=== PATIENT | male | born 1940 | race Caucasian/White ===

== ENCOUNTER 2019-07-17 20:22 | Emergency (ER) | payer MEDICARE, SELFPAY ==
--- NOTE | ~2019-07-17 | XR_ITS ---
XR chest 2V 07/17/2019 21:24 Indication: Chest pain Procedure: 2 view chest Comparison: 12/02/2018 Findings: Heart size normal. Pacemaker lead tip in the right ventricle. No focal air space disease, p ulmonary edema, pleural effusion or suspected pneumothorax. Impression: 1: No acute cardiopulmonary disease. Reviewed, dictated and finalized at location A. Impression: 1: No acute cardiopulmonary disease.
[2019-07-17 20:27] VITALS: BP 109/70; PULSE 75; PULSE 83; RESP 18; TEMP 36; O2SAT 100
--- NOTE | 2019-07-17 20:53 | ECG_ITS ---
Measurements Intervals [place] Rate: 72 P: [place]: 0 QRS: 250 QRSD: 174 T: 65 QT: 444 QTc: 487 Interpretive Statements ELECTRONIC VENTRICULAR PACEMAKER WITH INHIBITION UNDERLYING PROBABLY ATRIAL FIBRILLATION INTRAVENTRICULAR CONDUCTION DELAY BORDERLINE ST-T WAVE ABNORMALITY- LATERAL LEADS BASELINE ARTIFACT- I, II, III, AVR, AVL, AVF, V2 NO FURTHER INTERPRETATION IS POSSIBLE ABNORMAL ECG Electronically Signed On 07-18-2019 7:56:28 CDT by Lawrence Renee D.O.
[2019-07-17 21:11] LABS: Basophils Absolute Auto 0.1 K/mm3 (0.0-0.1); Basophils Percent Auto 0.7 % (0.2-1.2); Eosinophils Absolute Auto 0.2 K/mm3 (0-0.3); Eosinophils Percent Auto 2.1 % (0-4.4); Hematocrit 33.2 % (42.0-52.0); Hemoglobin 11.4 g/dL (14.0-18.0); Immature Granulocyte Absolute 0.15 K/mm3 (0.00-0.031); Immature Granulocyte Percent A 1.4 % (0-0.5); Lymphocytes Absolute Auto 1.51 K/mm3 (0.9-3.2); Lymphocytes Percent Auto 14.1 % (18.3-44.2); Mean Corpuscular HGB Conc 34.3 g/dl (32-36); Mean Corpuscular Volume 90.2 fl (80-100); Mean Platelet Volume 9.6 fl (7.4-10.4); Monocytes Percent Auto 9.2 % (2.6-8.5); Neutrophils Absolute Auto 7.8 K/mm3 (1.3-6.7); Neutrophils Percent Auto 72.5 % (45.5-73.1); Platelet Count Result 197 k/mm3 (150-375); Red Blood Count 3.68 M/mm3 (4.6-6.20); Red Cell Distribution Width 13.5 % (11.5-14.5); White Blood Count 10.7 K/mm3 (4.5-10.0)
[2019-07-17 21:21] LABS: INR 1.2; Prothrombin Time 14.8 Seconds (11.1-14.7)
[2019-07-17 21:22] LABS: Partial Thromboplastin Time 48.1 SECONDS (22.3-36.8)
[2019-07-17 21:23] LABS: Blood Urea Nitrogen 12 mg/dL (9-20); Calcium 8.3 mg/dL (8.4-10.2); Carbon Dioxide 29 mmol/L (22-30); Chloride 89 mmol/L (98-107); Estimated Glomerular Filt Rate > 60; Glucose 159 mg/dL (75-110); Sodium 127 mmol/L (137-145)
[2019-07-17 21:35] LABS: Troponin I 0.022 ng/mL (0.000-0.034)
[2019-07-17 21:39] VITALS: BP 102/61; PULSE 83; RESP 18; O2SAT 100
[2019-07-17] MEDS: BELLADONNA ALK/PHENOB ELIX 10 ML, MAG HYDROX/ALUMINUM HYD/SIMETH 30 ML, LIDOCAINE HCL 2... PO (22:39)
[2019-07-17 22:40] VITALS: BP 102/59; PULSE 85; RESP 18; O2SAT 97
--- NOTE | 2019-07-17 23:08 | ED.GENADULT ---
HPI - General Adult General Chief complaint: Chest Pain Stated complaint: chest pain Time Seen by Provider: 07/17/19 22:07 History of Present Illness HPI narrative: Patient is a 79-year-old male who presents to the ER with epigastric abdominal pain radiating up into his chest. It is burning in nature. It occurred after he finished eating this evening. Associated with nausea/vomiting. No difficulty breathing/sweats/dizziness. Poor historian. Related Data Allergies Allergy/AdvReac Type Severity Reaction Status Date / Time cephalexin Allergy Unknown Verified 08/13/17 06:33 Cephalosporins Allergy Unknown Verified 08/13/17 06:33 Penicillins Allergy Unknown Verified 08/13/17 06:33 shellfish derived Allergy Unknown Verified 08/13/17 06:33 Shrimp Allergy Unknown Uncoded 12/06/18 23:25 Review of Systems Constitutional: Constitutional: Denies chills, Denies fever(s) and Denies weakness Cardiovascular: Cardiovascular: Reports chest pain, Denies rapid heart rate and Denies radiating jaw, neck or arm pain Respiratory: Respiratory: Denies cough, Denies dyspnea and Denies wheezing Gastrointestinal: Gastrointestinal: Reports heartburn, Reports nausea and Reports vomiting PMFSH Past Medical History Medical History (Updated 07/17/19 @ 23:33 by Karlos Chirinos MD) Atrial fibrillation Congestive heart failure COPD (chronic obstructive pulmonary disease) Diabetes type 2, controlled GERD (gastroesophageal reflux disease) Hyperlipidemia Hypertension Hypothyroidism Obstructive sleep apnea Restless leg syndrome Surgical History Surgical History (Updated 07/17/19 @ 23:25 by Karlos Chirinos MD) History of appendectomy Pacemaker Family History Family History (Updated 08/13/17 @ 06:38 by DOCTOR UNKNOWN) Father Family history of malignant neoplasm, Onset Age: 70 Mother Family history of malignant neoplasm, Onset Age: 70 Social History Social History Smoking status: Former smoker Smoking end date: 05/06/99 Gender identity (if verbalized by the patient): Male Exam Narrative: Exam Narrative: GENERAL: Chronically illl-appearing, well-nourished, and in no acute distress. HEAD: Normocephalic, atraumatic. ENT: Mucous membranes moist. NECK: Supple. CHEST: Clear to auscultation. No respiratory distress. HEART: Regular rate and rhythm. Normal peripheral pulses. ABDOMEN: Soft, nontender, nondistended. EXTREMITIES: Normal range of motion BUE. Chronic lower extremity edema with venous stasis changes. SKIN: Warm, dry, no rash. NEURO: Alert and oriented x3. Course Course Emergency Course: Patient with significant improvement of symptoms with GI cocktail. Patient states that the pain was similar to his reflux. Patient has some chronic hyponatremia. Plan on discharge back to facility. Troponins negative x2. Vital Signs Vital signs: Vital Signs Temperature 96.8 F L 07/17/19 20:27 Pulse Rate 83 07/17/19 20:27 Respiratory Rate 18 07/17/19 20:27 Blood Pressure 109/70 07/17/19 20:27 Pulse Oximetry 100 07/17/19 20:27 Temperature 96.8 F L 07/17/19 20:27 Pulse Rate 73 07/17/19 23:50 Respiratory Rate 20 07/17/19 23:50 Blood Pressure 106/59 L 07/17/19 23:50 Pulse Oximetry 100 07/17/19 23:50 Medical Decision Making Vital Signs Vital Signs: Vital Signs Temperature 96.8 F L 07/17/19 20:27 Pulse Rate 83 07/17/19 20:27 Respiratory Rate 18 07/17/19 20:27 Blood Pressure 109/70 07/17/19 20:27 Pulse Oximetry 100 07/17/19 20:27 Temperature 96.8 F L 07/17/19 20:27 Pulse Rate 73 07/17/19 23:50 Respiratory Rate 20 07/17/19 23:50 Blood Pressure 106/59 L 07/17/19 23:50 Pulse Oximetry 100 07/17/19 23:50 Lab Data Result diagrams: 07/17/19 21:05 07/17/19 21:05 Labs: Lab Results 07/17/19 07/17/19 07/17/19 Range/Units 21:05 21:05 21:05 WBC 10.7 H (4.5-10.0) K/mm3 RBC 3.68 L (4.
[2019-07-17 23:50] VITALS: BP 106/59; PULSE 73; RESP 20; O2SAT 100
[2019-07-18 00:21] LABS: Troponin I 0.023 ng/mL (0.000-0.034)
[2019-07-18 00:47] VITALS: BP 108/58; PULSE 74; RESP 18; O2SAT 100
[2019-07-18 01:04] VITALS: BP 108/58; PULSE 82; RESP 18; O2SAT 100
--- NOTE | 2019-07-18 01:55 | PC.NURSE ---
[facility] here to take pt back to [facility] @ [facility]
[2019-07-18 02:03] VITALS: BP 108/59; PULSE 78; RESP 18; O2SAT 98
== END 2019-07-18 02:08 | disposition home or self-care (01) ==
PROVIDERS: Emergency Provider Emergency Medicine; PCP Family Medicine
DX: K21.9 Gastro-esophageal reflux disease without esophagitis (principal); I48.91 Unspecified atrial fibrillation; I50.9 Heart failure, unspecified; J44.9 Chronic obstructive pulmonary disease, unspecified; E11.9 Type 2 diabetes mellitus without complications; E78.5 Hyperlipidemia, unspecified; I11.0 Hypertensive heart disease with heart failure; E03.9 Hypothyroidism, unspecified; G47.33 Obstructive sleep apnea (adult) (pediatric); G25.81 Restless legs syndrome; Z95.0 Presence of cardiac pacemaker; Z87.891 Personal history of nicotine dependence; R94.31 Abnormal electrocardiogram [ECG] [EKG]
CPT/HCPCS: 36415; 71046; 80048; 84484; 85025; 85610; 85730; 93005; 99284; A9270

== ENCOUNTER 2019-11-03 04:54 | Emergency (ER) | payer MEDICARE, SELFPAY ==
[2019-11-03 04:52] VITALS: BP 133/63; PULSE 63; RESP 16; TEMP 36.7; O2SAT 94
--- NOTE | 2019-11-03 04:58 | ED.MALEGU ---
HPI - Male Genitourinary General Chief complaint: Urogenital-Male Stated complaint: catheter pain Time Seen by Provider: 11/03/19 04:57 History of Present Illness HPI Narrative: Patient presents via EMS from the long term for bloody painful urinary catheter. His catheter was replaced at midnight, and he had pain since. The tubing in bag have blood-tinged urine. He said he has had chills since the catheter was placed. He denies illness. Says he has pain in his hands from his arthritis. When asked if he was coughing he said no he does not want any coffee. His hearing aids are hanging out of his ears. Related Data Home Medications Medication Instructions Recorded Confirmed atorvastatin 10 mg PO HS 11/03/19 budesonide [Pulmicort Flexhaler] 1 inh INHALATION Q12H 11/03/19 calcium carbonate-vitamin D3 1 tablet PO BID 11/03/19 [Oystercal-D] dabigatran etexilate [Pradaxa] 150 mg PO BID 11/03/19 dextran 70-hypromellose 2 drp OPHTHALMIC (EYE) HS 11/03/19 diltiazem HCl 30 mg PO TID 11/03/19 docusate sodium 50 mg PO BID 11/03/19 ezetimibe 10 mg PO DAILY 11/03/19 finasteride 5 mg PO DAILY 11/03/19 fludrocortisone 11/03/19 furosemide [Lasix] 40 mg PO DAILY 11/03/19 gabapentin 100 mg PO DAILY 11/03/19 insulin lispro protamin-lispro 5 unit SUBCUT QAM 11/03/19 ipratropium-albuterol [Combivent 1 puff INHALATION Q4H 11/03/19 Respimat] levothyroxine 125 mcg PO DAILY 11/03/19 magnesium hydroxide [Milk of 400 mg PO DAILY PRN 11/03/19 Magnesia] pantoprazole 40 mg PO HS 11/03/19 polyethylene glycol 3350 [Miralax] 17 g PO DAILY PRN 11/03/19 sitagliptin 100 mg PO DAILY 11/03/19 spironolactone 25 mg PO BID 11/03/19 tramadol 50 mg PO Q6H PRN 11/03/19 triamcinolone acetonide 1 applic TOPICAL DAILY 11/03/19 Allergies Allergy/AdvReac Type Severity Reaction Status Date / Time cephalexin Allergy Unknown Unknown Verified 11/03/19 05:03 Cephalosporins Allergy Unknown Unknown Verified 11/03/19 05:03 Penicillins Allergy Unknown Unknown Verified 11/03/19 05:03 shellfish derived Allergy Unknown Unknown Verified 11/03/19 05:03 Shrimp Allergy Unknown Unknown Uncoded 11/03/19 05:03 Review of Systems Review of Systems: Narrative: Review of systems is limited by hard of hearing. All systems reviewed & are unremarkable except as noted in HPI and below (HPI) PMFSH Past Medical History Medical History Atrial fibrillation Congestive heart failure COPD (chronic obstructive pulmonary disease) Diabetes type 2, controlled GERD (gastroesophageal reflux disease) Hyperlipidemia Hypertension Hypothyroidism Obstructive sleep apnea Restless leg syndrome Surgical History Surgical History History of appendectomy Pacemaker Family History Family History (Updated 08/13/17 @ 06:38 by DOCTOR UNKNOWN) Father Family history of malignant neoplasm, Onset Age: 70 Mother Family history of malignant neoplasm, Onset Age: 70 Social History Social History Smoking status: Former smoker Smoking end date: 05/06/99 Gender identity (if verbalized by the patient): Male Exam Narrative: Exam Narrative: GENERAL: Well-appearing, well-nourished, and in no acute distress. Underbite. Loud voice. Hearing aids. HEAD: Normocephalic, atraumatic. EYES: PERRLA and EOMI. ENT: Nares clear, no rhinorrhea or epistaxis. Mucous membranes moist. NECK: Supple. CHEST: Clear to auscultation. No respiratory distress. HEART: Regular rate and rhythm. No murmur heard. Normal peripheral pulses. ABDOMEN: Soft, nontender, nondistended, normal active bowel sounds. EXTREMITIES: Normal range of motion. No edema. SKIN: Warm, dry, no rash. NEURO: No focal deficits. Alert and oriented x3. PSYCH: Normal mood and affect. : hypospadias, blood at the meatus. catheter fell out when sh
--- NOTE | 2019-11-03 05:05 | PC.NURSE ---
Urojet used for riojas catheter insertion.
[2019-11-03] MEDS: CIPROFLOXACIN 400 MG/D5W 200ML 200 ML 200 MG IVPB (05:31)
[2019-11-03 05:34] LABS: Basophils Percent Auto 0.7 % (0.2-1.2); Eosinophils Absolute Auto 0.1 K/mm3 (0-0.3); Eosinophils Percent Auto 1.7 % (0-4.4); Hemoglobin 10.9 g/dL (14.0-18.0); Immature Granulocyte Absolute 0.02 K/mm3 (0.00-0.031); Immature Granulocyte Percent A 0.4 % (0-0.5); Lymphocytes Percent Auto 15.3 % (18.3-44.2); Mean Corpuscular HGB Conc 32.1 g/dl (32-36); Mean Corpuscular Hemoglobin 31.8 pg (26-34); Mean Corpuscular Volume 99.1 fl (80-100); Mean Platelet Volume 10.3 fl (7.4-10.4); Monocytes Percent Auto 0.9 % (2.6-8.5); Neutrophils Absolute Auto 3.7 K/mm3 (1.3-6.7); Platelet Count Result 156 k/mm3 (150-375); Red Blood Count 3.43 M/mm3 (4.6-6.20); Red Cell Distribution Width 13.8 % (11.5-14.5); White Blood Count 4.6 K/mm3 (4.5-10.0)
[2019-11-03 05:41] LABS: Add Urine Microscopic? YES; Appearance Urine Clear (Clear); Bacteria Urine Trace /hpf; Bilirubin Urine Negative (Negative); Blood Urine 3+ (Negative); Color Urine Yellow (Yellow); Glucose Urine UA Negative (Negative); Ketones Urine Negative (Negative); Leukocyte Esterase Ur 2+ LEU/UL (Negative); Nitrate Urine Negative (Negative); Protein Urine Negative (Negative); RBC Urine >75 /hpf (0-2); Specific Grav Ur 1.015 (1.001-1.035); Urobilinogen Urine Negative mg/dL (<2.0); WBC Urine 51-75 /hpf
[2019-11-03 05:49] LABS: Alanine Aminotransferase 13 U/L (4-50); Albumin Level 4.2 g/dL (3.5-5.1); Alkaline Phosphatase 93 U/L (38-126); Aspartate Amino Transferase 23 U/L (17-59); Bilirubin,Total 1.1 mg/dL (0.2-1.3); Blood Urea Nitrogen 19 mg/dL (9-20); Calcium 9.3 mg/dL (8.4-10.2); Carbon Dioxide 24 mmol/L (22-30); Chloride 103 mmol/L (98-107); Estimated Glomerular Filt Rate > 60; Glucose 107 mg/dL (75-110); Potassium 4.1 mmol/L (3.4-5.0); Sodium 136 mmol/L (137-145)
[2019-11-03 06:51] VITALS: BP 109/66; PULSE 99; RESP 14; TEMP 36.8; O2SAT 94
--- NOTE | 2019-11-03 06:57 | PC.NURSE ---
Called [facility] to transport patient. ETA [id number]
== END 2019-11-03 07:46 ==
PROVIDERS: Emergency Provider Emergency Medicine; PCP Family Medicine
DX: R31.9 Hematuria, unspecified (principal); I48.91 Unspecified atrial fibrillation; I11.0 Hypertensive heart disease with heart failure; I50.9 Heart failure, unspecified; J44.9 Chronic obstructive pulmonary disease, unspecified; E11.9 Type 2 diabetes mellitus without complications; K21.9 Gastro-esophageal reflux disease without esophagitis; E03.9 Hypothyroidism, unspecified; G47.30 Sleep apnea, unspecified; Z79.4 Long term (current) use of insulin
CPT/HCPCS: 36415; 51702; 80053; 81001; 85025; 87077; 87086; 87088; 87186; 96365; 99284; J0744

== ENCOUNTER 2020-03-24 10:06 | Inpatient (IN) | payer MEDICARE, MEDICAID, SELFPAY ==
--- NOTE | ~2020-03-24 | XR_ITS ---
EXAMINATION: XR chest 1V portable EXAM DATE: 03/26/2020 07:02 INDICATION: Shortness of breath +. TECHNIQUE: Portable AP frontal chest x-ray was obtained. Comparison is made to prior examination from 03/24/2020. FINDINGS: Extensive bilateral ill-defined acute airspace disease, likely edema or infection. Mild car diomegaly. There is single lead pacemaker/AICD device seen with tip projecting over the expected loca tion of right ventricle. There is aortic arteriosclerosis. Probable small left pleural effusion. Ther e is no pneumothorax suspected. Mild in IMPRESSION: Extensive bilateral acute airspace disease, likely edema or infection unchanged. Reviewed, dictated and finalized at location A. FOLIO SPECIALIST IMPRESSION: Extensive bilateral acute airspace disease, likely edema or infecti on unchanged.
--- NOTE | ~2020-03-24 | XR_ITS ---
EXAMINATION: XR chest 1V portable EXAM DATE: 03/24/2020 10:39 INDICATION: Shortness of breath. TECHNIQUE: Portable AP frontal chest x-ray was obtained. Comparison is made to prior examination from 07/17/2019. FINDINGS: Extensive bilateral ill-defined acute airspace disease, likely edema or infection. COVID-19 should be considered. Mild cardiomegaly. There is single lead pacemaker/AICD device seen with tip pr ojecting over the expected location of right ventricle. There is aortic arteriosclerosis. Probable sm all left pleural effusion. There is no pneumothorax suspected. Mild in IMPRESSION: Development of extensive bilateral acute airspace disease, likely edema or infection. COV ID-19 should be considered. Reviewed, dictated and finalized at location A. EY RESEARCH ASSOCIATE IMPRESSION: Development of extensive bilateral acute airspace disease, likely e efrain or infection. COVID-19 should be considered.
--- NOTE | ~2020-03-24 | XR_ITS ---
XR chest 1V portable DATE: 04/03/2020 06:03 INDICATION: Covid pneumonia TECHNIQUE: Portable AP chest on 04/03/2020 at 0515 hours COMPARISON: 04/01/2020 portable AP chest at 0528 hours FINDINGS: There are persistent diffuse bilateral severe pulmonary patchy consolidating infiltrate, re latively unchanged since 04/01/2020. Cardiomegaly. Aortic arch and descending thoracic aortic calcification. Left-sided transvenous pacemaker device lead overlies right ventricular apex. No pleural effusion is evident. No pneumothorax. IMPRESSION: Persistent severe bilateral pulmonary infiltrates, relatively stable since 04/01/2020 Reviewed, dictated and finalized at location A. TS MARKETING SPECIALIST IMPRESSION: Persistent severe bilateral pulmonary infiltrates, relatively stabl e since 04/01/2020
--- NOTE | ~2020-03-24 | XR_ITS ---
XR chest 1V portable DATE: 04/01/2020 05:52 INDICATION: Covid 19 pneumonia TECHNIQUE: Portable AP chest on 04/01/2020 at 0528 hours COMPARISON: 03/31/2020 portable AP chest at 0516 hours FINDINGS: There are patchy bilateral consolidating pulmonary infiltrates persist. Heart size is not optimally evaluated on AP projection magnification but is likely enlarged. Is aorti c arch calcification. No pleural effusion or pneumothorax is evident. Left-sided pacemaker device with lead overlying right ventricular apex. IMPRESSION: Persistent severe bilateral pulmonary infiltrates Reviewed, dictated and finalized at location A. LOPMENTAL BEHAVIORAL PHYSICIAN
--- NOTE | ~2020-03-24 | XR_ITS ---
XR chest 1V portable DATE: 03/31/2020 06:46 INDICATION: Covid pneumonia. Shortness of breath. TECHNIQUE: Portable AP chest on 03/31/2020 at 0516 hours COMPARISON: 03/30/2020 portable AP chest at 0509 hours FINDINGS: Severe bilateral patchy consolidating infiltrates are essentially unchanged since 0. There is minimal if any pleural effusion. No pneumothorax. Left-sided pacemaker device with lead overlying right ventricular apex. Aortic arch calcification. IMPRESSION: No significant change of severe bilateral diffuse patchy consolidating infiltrates throug hout both lungs Reviewed, dictated and finalized at location A. FRAME TENDER IMPRESSION: No significant change of severe bilateral diffuse patchy consolidat ing infiltrates throughout both lungs
--- NOTE | ~2020-03-24 | XR_ITS ---
XR chest 1V portable 03/30/2020 06:04 Indication: CovidPneumonia Procedure: AP portable chest Comparison: Comparison to multiple prior studies sequentially, with oldest reviewed study dated 12/02. Findings: Interval progression of diffuse bilateral airspace consolidation, consistent with pneumonia . No pneumothorax. No acute osseous abnormality. Impression: 1: Worsening bilateral airspace consolidation, consistent with pneumonia. Reviewed, dictated and finalized at location A. HAUL DRIVER Impression: 1: Worsening bilateral airspace consolidation, consistent with pneumonia.
--- NOTE | 2020-03-24 10:12 | ED.SOB ---
HPI - SOB/Dyspnea General Chief Complaint: Shortness of Breath/Dyspnea Stated Complaint: SOB Time Seen by Provider: 03/24/20 10:08 History of Present Illness HPI Narrative: History limited by medical condition and poor historian 79 yo male w/ COPD, CHF, DM brought in from [place] for SOB. It is unclear how long he has been SOB. He reportedly tested positive for COVID-19 on 03/11/2020. When EMS arrived today he was on 4 liters with oxygen saturation in the 80. This improved on 6 liters. Unknown if he is on oxygen at baseline. He denies any pain. Related Data Home Medications Medication Instructions Recorded Confirmed atorvastatin 10 mg PO HS 11/03/19 03/24/20 budesonide [Pulmicort Flexhaler] 1 inh INHALATION Q12H 11/03/19 03/24/20 calcium carbonate-vitamin D3 1 tablet PO BID 11/03/19 03/24/20 [Oystercal-D] dabigatran etexilate [Pradaxa] 150 mg PO BID 11/03/19 03/24/20 dextran 70-hypromellose 2 drp OPHTHALMIC (EYE) BID 11/03/19 03/24/20 diltiazem HCl 30 mg PO TID 11/03/19 03/24/20 docusate sodium 50 mg PO BID 11/03/19 03/24/20 ezetimibe 10 mg PO DAILY 11/03/19 03/24/20 finasteride 5 mg PO DAILY 11/03/19 03/24/20 fludrocortisone 0.1 mg DAILY 11/03/19 03/24/20 furosemide [Lasix] 40 mg PO DAILY 11/03/19 03/24/20 gabapentin 100 mg PO DAILY 11/03/19 03/24/20 insulin lispro protamin-lispro 5 unit SUBCUT QAM 11/03/19 03/24/20 ipratropium-albuterol [Combivent 1 puff INHALATION Q4H 11/03/19 03/24/20 Respimat] levothyroxine 125 mcg PO DAILY 11/03/19 03/24/20 magnesium hydroxide [Milk of 400 mg PO DAILY PRN 11/03/19 03/24/20 Magnesia] pantoprazole 40 mg PO HS 11/03/19 03/24/20 polyethylene glycol 3350 [Miralax] 17 g PO DAILY 11/03/19 03/24/20 sitagliptin 100 mg PO DAILY 11/03/19 03/24/20 spironolactone 25 mg PO BID 11/03/19 03/24/20 tramadol 50 mg PO Q6H PRN 11/03/19 03/24/20 triamcinolone acetonide 1 applic TOPICAL DAILY 11/03/19 03/24/20 acetaminophen 500 mg PO Q6-8H PRN 03/24/20 03/24/20 aspirin [Aspir-81] 81 mg PO DAILY 03/24/20 03/24/20 fluticasone furoate-vilanterol 1 inh INHALATION DAILY 03/24/20 03/24/20 [Breo Ellipta] Allergies Allergy/AdvReac Type Severity Reaction Status Date / Time cephalexin Allergy Unknown Unknown Verified 03/24/20 11:53 Penicillins Allergy Unknown Unknown Verified 03/24/20 11:53 shellfish derived Allergy Unknown Unknown Verified 03/24/20 11:53 Shrimp Allergy Unknown Unknown Uncoded 03/24/20 11:53 Review of Systems Review of Systems: ROS unobtainable: Yes unobtainable due to medical condition and unobtainable due to mental status [facility] Past Medical History Medical History Atrial fibrillation Congestive heart failure COPD (chronic obstructive pulmonary disease) Diabetes type 2, controlled GERD (gastroesophageal reflux disease) Hyperlipidemia Hypertension Hypothyroidism Obstructive sleep apnea Restless leg syndrome Surgical History Surgical History History of appendectomy Pacemaker Family History Family History Father Family history of malignant neoplasm, Onset Age: 70 Mother Family history of malignant neoplasm, Onset Age: 70 Social History Social History Social History: Current resident of local group home, has not smoked for approximately 20 years 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
[2020-03-24 10:31] VITALS: BP 146/72; PULSE 75; RESP 23; TEMP 36.6; O2SAT 91
[2020-03-24 10:32] LABS: Basophils Absolute Auto 0.1 K/mm3 (0.0-0.1); Basophils Percent Auto 0.7 % (0.2-1.2); Hematocrit 34.4 % (42.0-52.0); Hemoglobin 11.8 g/dL (14.0-18.0); Immature Granulocyte Percent A 10.8 % (0-0.5); Lymphocytes Absolute Auto 0.91 K/mm3 (0.9-3.2); Lymphocytes Percent Auto 5.8 % (18.3-44.2); Mean Corpuscular HGB Conc 34.3 g/dl (32-36); Mean Corpuscular Hemoglobin 32.2 pg (26-34); Mean Corpuscular Volume 93.7 fl (80-100); Mean Platelet Volume 9.9 fl (7.4-10.4); Monocytes Absolute Auto 0.8 K/mm3 (0.1-0.6); Monocytes Percent Auto 4.9 % (2.6-8.5); Neutrophils Absolute Auto 12.3 K/mm3 (1.3-6.7); Neutrophils Percent Auto 77.8 % (45.5-73.1); Nucleated Red Blood Cells Perc 0.2 % (0.0-0.2); Platelet Count Result 278 k/mm3 (150-375); Red Blood Count 3.67 M/mm3 (4.6-6.20); Red Cell Distribution Width 13.1 % (11.5-14.5); White Blood Count 15.8 K/mm3 (4.5-10.0)
--- NOTE | 2020-03-24 10:34 | ECG_ITS ---
Measurements Intervals [place] Rate: 76 P: [place]: 0 QRS: -66 QRSD: 108 T: -53 QT: 329 QTc: 371 Interpretive Statements ATRIAL FIBRILLATION RIGHT BUNDLE BRANCH BLOCK LEFT ANTERIOR FASCICULAR BLOCK BASELINE ARTIFACT- I, II, AVR, AVL, AVF, V5 ABNORMAL ECG Electronically Signed On 03-24-2020 11:00:14 FOLEY ARTIST by Lawrence Renee D.O.
[2020-03-24 10:43] LABS: INR 1.2; Partial Thromboplastin Time 28.6 SECONDS (22.3-36.8); Prothrombin Time 16.2 Seconds (11.1-14.7)
[2020-03-24 10:44] LABS: Alanine Aminotransferase 30 U/L (4-50); Albumin Level 3.2 g/dL (3.5-5.1); Alkaline Phosphatase 93 U/L (38-126); Anion Gap 9 mmol/L (8-16); Aspartate Amino Transferase 40 U/L (17-59); Bilirubin,Total 0.9 mg/dL (0.2-1.3); Blood Urea Nitrogen 23 mg/dL (9-20); Calcium 8.6 mg/dL (8.4-10.2); Carbon Dioxide 28 mmol/L (22-30); Chloride 101 mmol/L (98-107); Estimated Glomerular Filt Rate > 60; Glucose 256 mg/dL (75-110); Magnesium 1.5 mg/dL (1.6-2.3); Phosphorus 3.5 mg/dL (2.5-4.5); Potassium 4.5 mmol/L (3.4-5.0); Sodium 138 mmol/L (137-145)
--- NOTE | 2020-03-24 10:49 | PC.NURSE ---
tested positive for COVID on 03/11/20 - per Maida at [facility]
[2020-03-24 10:56] LABS: NT Pro B Type Natriuretic Pept 3850 PG/ML (5-100); Troponin I 0.029 ng/mL (0.000-0.034)
[2020-03-24] MEDS: FUROSEMIDE INJ 40 MG/4 ML VIAL IV PUSH ×2 (10:57→20:16)
[2020-03-24 11:10] LABS: Add Urine Microscopic? YES; Appearance Urine Clear (Clear); Bacteria Urine 4+ /hpf; Bilirubin Urine Negative (Negative); Blood Urine 1+ (Negative); Color Urine Yellow (Yellow); Glucose Urine UA 1+ mg/dL (Negative); Ketones Urine Negative (Negative); Leukocyte Esterase Ur Negative LEU/UL (Negative); Mucus Urine Rare /lpf; Nitrate Urine Positive (Negative); Protein Urine Negative (Negative); RBC Urine 0-2 /hpf (0-2); Specific Grav Ur 1.013 (1.001-1.035); Squamous Epithelial Cell Urine Rare /hpf (Few); Urobilinogen Urine Negative mg/dL (<2.0)
[2020-03-24] MEDS: MAGNESIUM SULF 2 GM/WATER 50ML 2 GM/50 ML BAG IVPB (12:07)
--- NOTE | 2020-03-24 12:29 | PC.NURSE ---
report given to RN on floor. will transfer patient on cardiac specialist. Nikita done. mag rider sent with patient. patient's wallet and cell phone sent with him.
--- NOTE | 2020-03-24 12:35 | ADMGEN ---
This patient, Theo Gan, was admitted to 3 [facility] Surg Room 313-01. Patient/family oriented to hospital policies and general routines including ID bracelet, bed and alarms, visiting hours, pain management, procedures, bathroom and other care routines, personal items, smoking policy, room service/diet, and visiting hours. Information on how to activate the Rapid Response Team has been discussed. Patient/Family are encouraged to report perceived risks to care and to ask questions if they do not understand what they are told or what they should do.
[2020-03-24] MEDS: ALBUTEROL SULFATE (*SP) AEROSOL 1 PUFF 2 PUFF INHALATION ×2 (13:25→20:25)
--- NOTE | 2020-03-24 14:52 | PM.IMHP ---
H&P: HPI History of Present Illness Date/Time: 03/24/20 14:52 Chief complaint: Acute on chronic respiratory failure Narrative: Date of visit 03/24, 1400. Theo Gan is a 79 year old male with history of congestive heart failure chronic AFib, COPD tested positive for COVID on 03/11/20 and had been placed on Decadron 03/17/2020 when became hypoxic. Today he was more short of breath and EMS was called to the longterm and did desaturate to the low 80s apparently. With rest and placed on 4 L he came back up to almost 90%. He had just been on oxygen the last week. Denied any fever chills cough or chest pain just the shortness of breath. Last echo recorded here was 2 years ago showing ejection fraction about 50% with moderate pulmonary hypertension. Denies any PND orthopnea or pedal edema but states he has not been sleeping well Review of Systems Review of Systems: Narrative: Constitutional appetite fair no change in weight to his knowledge Eye no double vision or [place] Mouth no pharyngitis laryngitis Pulmonary shortness of breath as per present illness CV no chest pain or palpitation GI no melena hematochezia diarrhea or constipation no dysuria no hematuria urine is clear Muscle skeletal no particular joint discomfort Integument no skin breakdown rashes Neuropsych no seizures no syncope PMFSH Past Medical History Medical History (Updated 03/24/20 @ 15:04 by Juan Oconnor MD) Atrial fibrillation Congestive heart failure COPD (chronic obstructive pulmonary disease) Diabetes type 2, controlled GERD (gastroesophageal reflux disease) Hyperlipidemia Hypertension Hypothyroidism Obstructive sleep apnea Restless leg syndrome Surgical History Surgical History History of appendectomy Pacemaker Family History Family History Father Family history of malignant neoplasm, Onset Age: 70 Mother Family history of malignant neoplasm, Onset Age: 70 Social History Social History (Updated 03/24/20 @ 15:00 by Juan Oconnor MD) Social History: Current resident of local longterm, has not smoked for approximately 20 years 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 Smoking status: Former smoker Smoking end date: 05/06/99 Alcohol intake: former Substance use: never Living arrangements: longterm Additional occupation/education comments: Retired garvin Gender identity (if verbalized by the patient): Male Sexual Orientation (if Verbalized by the Patient): Straight or Heterosexual Meds Home Medications and Allergies Home Medications Medication Instructions Recorded Confirmed Type atorvastatin 10 mg PO HS 11/03/19 History budesonide [Pulmicort Flexhaler] 1 inh INHALATION Q12H 11/03/19 History calcium carbonate-vitamin D3 1 tablet PO BID 11/03/19 History [Oystercal-D] ciprofloxacin HCl 500 mg PO Q12H #20 tablet 11/03/19 Rx dabigatran etexilate [Pradaxa] 150 mg PO BID 11/03/19 History dextran 70-hypromellose 2 drp OPHTHALMIC (EYE) HS 11/03/19 History diltiazem HCl 30 mg PO TID 11/03/19 History docusate sodium 50 mg PO BID 11/03/19 History ezetimibe 10 mg PO DAILY 11/03/19 History finasteride 5 mg PO DAILY 11/03/19 History fludrocortisone 11/03/19 History furosemide [Lasix] 40 mg PO DAILY 11/03/19 03/24/20 History gabapentin 100 mg PO DAILY 11/03/19 History insulin lispro protamin-lispro 5 unit SUBCUT QAM 11/03/19 History ipratropium-albuterol [Combivent 1 puff INHALATION Q4H 11/03/19 History Respimat] levothyroxine 125 mcg PO DAILY 11/03/19 03/24/20 History magnesium hydroxide [Milk of 400 mg PO DAILY PRN 11/03/19 History Magnesia] pantoprazole 40 mg PO HS 11/03/19 History polyethylene glycol 3350 [Miralax] 17 g PO DAILY PRN 11/03/19 History sitagliptin 100 mg PO DAILY 11/03/19 History spironolactone 25 mg PO BID 11/03/19 H
[2020-03-24 16:00] VITALS: PULSE 104
[2020-03-24 16:15] VITALS: BMI 31.8
[2020-03-24 17:59] LABS: Glucose Point of Care 415 (65-105)
[2020-03-24] MEDS: DEXAMETHASONE 2 MG TABLET 6 MG PO (18:19)
[2020-03-24] MEDS: DOCUSATE SODIUM 100 MG CAPSULE PO (18:21)
[2020-03-24] MEDS: SPIRONOLACTONE 25 MG TABLET PO (18:22)
[2020-03-24] MEDS: INSULIN ASPART (*BKC) 100 UNITS/ML 15 UNITS SUB-Q (18:48)
[2020-03-24 20:00] VITALS: PULSE 84
[2020-03-24] MEDS: dilTIAZem HCL 30 MG TABLET PO (20:14)
[2020-03-24] MEDS: ATORVASTATIN 10 MG TABLET PO (20:15)
[2020-03-24] MEDS: PANTOPRAZOLE 40 MG TABLET PO (20:16)
[2020-03-24] MEDS: DABIGATRAN ETEXILATE 150 MG CAPSULE PO (20:16)
[2020-03-24 20:30] VITALS: RESP 24; O2SAT 86
[2020-03-24 20:49] VITALS: RESP 22; O2SAT 90
[2020-03-24 21:42] VITALS: BP 139/75; PULSE 89; RESP 22; TEMP 36.7; O2SAT 90
[2020-03-24 22:13] LABS: Glucose Point of Care 366 (65-105)
[2020-03-25] VITALS (16 sets, daily range): BP systolic 128–146; BP diastolic 54–68; PULSE 72–96; RESP 18–22; TEMP 36.6–36.9; O2SAT 83–97
--- NOTE | 2020-03-25 | ECHO_ITS ---
Patient Info Name: Theo Gan Age: 79 years : 1940 Gender: Male Ht: 69 in Wt: 245 lbs BSA: 2.37 m2 HR: 67 bpm BP: 146 / 72 mmHg Heart Rhythm: Indeterminant Technical Quality: Good Exam Date: 03/25/2020 11:30 AM Exam Location: [facility] Patient Status: Inpatient Admit Date: 03/24/2020 Staff Ordering Physician: Juan Oconnor MD Pickling Grader: Joey Ramirez RDCS, RT Attending Provider: Juan Oconnor MD Referring Physician: Elvin GIBBONS; Exam Type: CA echo doppler color flow Study Info Indications I50.9 - Heart failure, unspecified Complete two-dimensional, color flow and Doppler transthoracic echocardiogram is performed. Summary 1. Complete two-dimensional, color flow and Doppler transthoracic echocardiogram is performed. 2. There is moderate concentric increased left ventricular wall thickness. 3. Left ventricular systolic function is normal, estimated at 45-50%. 4. Left ventricular chamber dimension is mildly enlarged. 5. Linear artifact in right ventricle suggestive of catheter(s), pacemaker lead(s), or ICD lead(s). 6. Moderate biatrial dilation. Left Ventricle Left ventricular chamber dimension is mildly enlarged. Left ventricular systolic function is normal, estimated at 45-50%. There is moderate concentric increased left ventricular wall thickness. The left ventricular diastolic function is indeterminate. Right Ventricle Right ventricular chamber dimension is normal. Linear artifact in right ventricle suggestive of catheter(s), pacemaker lead(s), or ICD lead(s). Left Atria Left atrial chamber dimension is moderately enlarged. Right Atria Right atrial chamber dimension is moderately enlarged. Aortic Valve The aortic valve is normal. Pulmonic Valve The pulmonic valve is not well visualized. Mitral Valve The mitral valve has normal leaflets. There is mild mitral valve calcification. Tricuspid Valve The tricuspid valve leaflets are normal. Pericardium/Pleural The pericardium appears normal. Aorta The aortic root size at the sinus of Valsalva is normal. Left Ventricular Outflow Tract Name Value Normal LVOT 2D LVOT Diameter 2.2 cm LVOT Doppler LVOT Peak Gradient 3 mmHg LVOT Mean Gradient 2 mmHg LVOT VTI 16 cm LVOT VTI/AV VTI Ratio 0.8 LVOT Stroke Volume 59 ml LVOT CO 5.3 l/min LVOT CI 2.2 l/min/m2 Mitral Valve Name Value Normal MV Doppler MV Decel [place] 540 cm/s2 MV PHT 63 ms MV Area (PHT) 3.5 cm2 4.0-5.0 MV Diastolic Function
[2020-03-25] MEDS: LEVOTHYROXINE SODIUM 125 MCG TABLET PO (05:35)
[2020-03-25 06:32] LABS: Basophils Absolute Auto 0.1 K/mm3 (0.0-0.1); Basophils Percent Auto 0.7 % (0.2-1.2); Hemoglobin 12.1 g/dL (14.0-18.0); Immature Granulocyte Absolute 1.32 K/mm3 (0.00-0.031); Immature Granulocyte Percent A 8.1 % (0-0.5); Lymphocytes Absolute Auto 1.15 K/mm3 (0.9-3.2); Mean Corpuscular HGB Conc 34.6 g/dl (32-36); Mean Corpuscular Hemoglobin 31.8 pg (26-34); Mean Corpuscular Volume 92.1 fl (80-100); Mean Platelet Volume 10.1 fl (7.4-10.4); Monocytes Absolute Auto 0.9 K/mm3 (0.1-0.6); Monocytes Percent Auto 5.5 % (2.6-8.5); Neutrophils Absolute Auto 12.9 K/mm3 (1.3-6.7); Neutrophils Percent Auto 78.7 % (45.5-73.1); Nucleated Red Blood Cells Perc 0.2 % (0.0-0.2); Platelet Count Result 252 k/mm3 (150-375); Red Cell Distribution Width 13.2 % (11.5-14.5); White Blood Count 16.4 K/mm3 (4.5-10.0)
[2020-03-25 06:55] LABS: Potassium 4.1 mmol/L (3.4-5.0)
[2020-03-25 07:03] LABS: Alanine Aminotransferase 26 U/L (4-50); Alkaline Phosphatase 94 U/L (38-126); Anion Gap 5 mmol/L (8-16); Aspartate Amino Transferase 30 U/L (17-59); Bilirubin,Total 0.9 mg/dL (0.2-1.3); Blood Urea Nitrogen 23 mg/dL (9-20); CRP 7.1 mg/dL (<1.0); Calcium 8.5 mg/dL (8.4-10.2); Carbon Dioxide 34 mmol/L (22-30); Chloride 96 mmol/L (98-107); Creatine Kinase 24 U/L (55-170); Estimated CRCL calculation 87 ml/min; Estimated Glomerular Filt Rate > 60; Glucose 238 mg/dL (75-110); Lactate Dehydrogenase 1605 U/L (313-618); Sodium 135 mmol/L (137-145)
[2020-03-25 07:05] LABS: Hemoglobin A1C 6.2 % (<5.7)
[2020-03-25 07:12] LABS: Atypical Lymphocytes Present; Platelet Estimate Adequate (Adequate)
[2020-03-25 07:15] LABS: D Dimer 2.21 ug/mL (<0.48)
[2020-03-25 08:02] LABS: Vitamin D 25 Hydroxy 43.4 ng/mL
[2020-03-25] MEDS: SODIUM CHLORIDE 1 GM TABLET PO (08:43)
[2020-03-25] MEDS: DABIGATRAN ETEXILATE 150 MG CAPSULE PO ×2 (08:44→22:17)
[2020-03-25] MEDS: GABAPENTIN 100 MG CAPSULE PO (08:49)
[2020-03-25] MEDS: ASPIRIN 81 MG ENTERIC TABLET PO (08:49)
[2020-03-25] MEDS: polyethylene glycoL 3350 17 GM POWD.PACK PO (08:51)
[2020-03-25] MEDS: FUROSEMIDE INJ 40 MG/4 ML VIAL IV PUSH ×2 (08:51→22:17)
[2020-03-25] MEDS: EZETIMIBE 10 MG TABLET PO (08:51)
[2020-03-25] MEDS: FINASTERIDE 5 MG TABLET PO (08:51)
[2020-03-25] MEDS: TRIAMCINOLONE ACET 0.1% OINT 15 GM TUBE 1 APPLIC TOPICAL (08:52)
[2020-03-25] MEDS: dilTIAZem HCL 30 MG TABLET PO ×3 (08:52→17:24)
[2020-03-25] MEDS: DEXAMETHASONE 2 MG TABLET 6 MG PO (08:53)
[2020-03-25] MEDS: SPIRONOLACTONE 25 MG TABLET PO ×2 (08:53→17:22)
[2020-03-25] MEDS: DOCUSATE SODIUM 100 MG CAPSULE PO ×2 (08:54→17:22)
[2020-03-25] MEDS: INSULIN GLARGINE (*BKC) 100 UNITS/ML 15 UNITS SUB-Q (08:54)
[2020-03-25] MEDS: INSULIN ASPART (*BKC) 100 UNITS/ML SUB-Q ×3 (09:05→17:31)
[2020-03-25] MEDS: ALBUTEROL SULFATE (*SP) AEROSOL 1 PUFF 2 PUFF INHALATION ×3 (10:10→20:34)
[2020-03-25 10:14] LABS: Glucose Point of Care 225 (65-105)
--- NOTE | 2020-03-25 14:52 | PM.IMPN ---
Progress Note: A&P Assessment and Plan (1) Acute respiratory failure due to COVID-19: Code(s): U07.1 - COVID-19; J96.00 - Acute respiratory failure, unspecified whether with hypoxia or hypercapnia Status: Acute Assessment and Plan: Suspect x-ray findings and respiratory failure secondary to his COVID pneumonia. Diagnosis on the and became more hypoxic 6-7 days later as often happens and started on Decadron on the . Will finish 10 day course of Decadron 03/26. Too late in the course to consider remdesivir He is actually at least 14 days out and probably not contagious at this point so droplet isolation will not be imposed (2) Pneumonia: Code(s): J18.9 - Pneumonia, unspecified organism Status: Acute Assessment and Plan: Probable viral. Was empirically started on levofloxacin and will continue that at present time though suspicion for bacterial pneumonia is low (3) DVT prophylaxis: Code(s): Z29.9 - Encounter for prophylactic measures, unspecified Status: Acute Assessment and Plan: Pradaxa (4) Congestive heart failure: Code(s): I50.9 - Heart failure, unspecified Status: Acute Assessment and Plan: Chest x-ray could be related to heart failure also and BNP is elevated. Treat with IV Lasix and repeat echo to assess ventricular function. Has been on diltiazem to control ventricular rate and may do better with a beta-mike and possibly SANTIAGO-inhibitor,pendiing echo results (5) Atrial fibrillation: Code(s): I48.91 - Unspecified atrial fibrillation Status: Acute Assessment and Plan: Chronic controlled ventricular response. Continue Pradaxa diltiazem at present time (6) COPD (chronic obstructive pulmonary disease): Code(s): J44.9 - Chronic obstructive pulmonary disease, unspecified Status: Acute Assessment and Plan: Finish course of Decadron for COVID 03/26 and continue inhalers (7) Diabetes type 2, controlled: Code(s): E11.9 - Type 2 diabetes mellitus without complications Status: Acute Assessment and Plan: Low-dose sliding scale and A1c only 6.2 and will add low dose lantus for coverage with dexamethasone rx (8) Hypertension: Code(s): I10 - Essential (primary) hypertension Status: Acute Assessment and Plan: Blood pressure well controlled with diuretic and diltiazem continue to monitor (9) Hypothyroidism: Code(s): E03.9 - Hypothyroidism, unspecified Status: Acute Assessment and Plan: Continue thyroid replacement (10) Obstructive sleep apnea: Code(s): G47.33 - Obstructive sleep apnea (adult) (pediatric) Status: Acute Assessment and Plan: Continue nocturnal CPAP Subjective Date/time seen: 03/25/20 14:52 Interval history: Date of visit 03/25. 79-year-old hypertensive type 2 diabetic with recent diagnosis COVID symptoms pursue for evaluation for increasing hypoxia. Had been started on dexamethasone and continued here. This a.m. states still some short of breath with activity but no chest pain or pedal edema. Exam Narrative: Exam Narrative: Blood pressure 128/68 pulse is 84 respirations 22 per minute saturating 93% on 10L nasal cannula afebrile Pupils equal reactive light sclera anicteric Neck supple Lungs diffuse fine crackles posteriorly CV irregular no murmurs Abdomen soft nontender bowel sounds present Extremities no edema dorsalis pedis posterior tibial 1 to 2+ with marked venous stasis changes bilaterally Neuro alert pleasant cooperative no focal deficits but very hard of hearing Psych affect appears appropriate Objective Data Vital Signs Vital Signs: Vital Signs - 24 hr 03/24/20 16:00 03/24/20 20:00 03/24/20 20:30 Temperature Pulse Rate 104 H 84 Respiratory Rate 24 H Blood Pressure Pulse Oximetry 86 L 03/24/20 20:49 03/24/20 21:42 03/25/20 00:00 Temperature 36.7 C Pulse Rate 89 7
[2020-03-25 17:37] LABS: Glucose Point of Care 299 (65-105)
[2020-03-25 18:49] LABS: Glucose Point of Care 207 (65-105)
[2020-03-25] MEDS: ATORVASTATIN 10 MG TABLET PO (22:16)
[2020-03-25] MEDS: PANTOPRAZOLE 40 MG TABLET PO (22:17)
[2020-03-25 23:09] LABS: Glucose Point of Care 261 (65-105)
[2020-03-26] VITALS (17 sets, daily range): BP systolic 125–139; BP diastolic 60–74; PULSE 72–98; RESP 20–24; TEMP 35.8–36.5; O2SAT 91–97
--- NOTE | 2020-03-26 04:35 | PC.NURSE ---
0400 PT WITH C/O SHORTNESS OF BREATH AND BACK PAIN. O2 SAT 80% ON 10L HIGH FLOW CANNULA. PT REPOSITIONED IN BED TO [facility] AND PLACED ON A CONTINUOUS PULSE OX. CALLED RT TO PLACE PT ON CPAP PER MD ORDER. CPAP ON WITH O2 BLED IN. WITHIN 15 MINUTES O2 SATS ARE UP IN THE 90 S. PT FEELING BETTER. CONTINUING TO MONITOR PT.
--- NOTE | 2020-03-26 06:01 | PC.NURSE ---
0550 O2 SATS DROPPED TO 78% ON CPAP WITH 10L O2 BLED IN. NO DISTRESS NOTED. PT SLEEPING. WOKE PT UP AND SLOWLY HIS SATS RETURNED TO THE 90s. CALLED AND MADE DR VALLES AWARE. NO BEW ORDERS RECEIVED. CONTINUING TO MONITOR PT.
[2020-03-26] MEDS: LEVOTHYROXINE SODIUM 125 MCG TABLET PO (06:24)
--- NOTE | 2020-03-26 06:39 | PC.NURSE ---
[address] VALLES. PT'S O2 SAT IS IN THE 80'S. SOME USE OF ACCESSORY MUSCLES. CPAP WITH 10L O2 MAINTAINED. PT TOLERATING CPAP. [id number] DR VALLES HERE TO EVALUATE PT. ABGS DRAWN. AWAITING CXR.
[2020-03-26 06:53] LABS: Alveolar/Arterial O2 Gradient 541.6 mmHg; Base Excess ABG 6.5 mEq/l (+/-2.0); Fractional Inspired Oxygen 90 %; HCO3 ABG 30.1 mEq/l (22.0-26.0); Oxygen Content ABG 16.6 %vol (16.0-22.0); Oxyhemoglobin 90.6 % THb (90.0-100.0); PCO2 ABG 39.2 mmHg (35.0-45.0); PO2 ABG 59.9 mmHg (80.0-100.0); PO2 FiO2 Ratio Arterial Blood 0.67 %; pH ABG 7.503 (7.350-7.450)
[2020-03-26 06:54] LABS: Modified Allen's Test Pass; Site Drawn LEFT RADIAL
[2020-03-26 06:55] LABS: Device NON-INVASIVE VENT
[2020-03-26 06:56] LABS: Non-Invasive Inspiratory Pressure 13 CMH2O
[2020-03-26 07:01] LABS: Anion Gap 7 mmol/L (8-16); Blood Urea Nitrogen 33 mg/dL (9-20); Calcium 8.2 mg/dL (8.4-10.2); Carbon Dioxide 35 mmol/L (22-30); Chloride 92 mmol/L (98-107); Estimated CRCL calculation 76 ml/min; Estimated Glomerular Filt Rate > 60; Glucose 213 mg/dL (75-110); Magnesium 1.6 mg/dL (1.6-2.3); Potassium 3.9 mmol/L (3.4-5.0); Sodium 134 mmol/L (137-145)
[2020-03-26] MEDS: ALBUTEROL SULFATE (*SP) AEROSOL 1 PUFF 2 PUFF INHALATION ×2 (07:26→13:00)
[2020-03-26] MEDS: ASPIRIN 81 MG ENTERIC TABLET PO (08:12)
[2020-03-26] MEDS: DOCUSATE SODIUM 100 MG CAPSULE PO ×2 (08:12→17:04)
[2020-03-26] MEDS: EZETIMIBE 10 MG TABLET PO (08:12)
[2020-03-26] MEDS: DEXAMETHASONE 2 MG TABLET 6 MG PO (08:12)
[2020-03-26] MEDS: polyethylene glycoL 3350 17 GM POWD.PACK PO (08:12)
[2020-03-26] MEDS: GABAPENTIN 100 MG CAPSULE PO (08:12)
[2020-03-26] MEDS: SPIRONOLACTONE 25 MG TABLET PO ×2 (08:12→17:05)
[2020-03-26] MEDS: SODIUM CHLORIDE 1 GM TABLET PO (08:12)
[2020-03-26] MEDS: FINASTERIDE 5 MG TABLET PO (08:12)
[2020-03-26] MEDS: DABIGATRAN ETEXILATE 150 MG CAPSULE PO ×2 (08:13→21:18)
[2020-03-26] MEDS: FUROSEMIDE INJ 40 MG/4 ML VIAL IV PUSH (08:13)
[2020-03-26] MEDS: TRIAMCINOLONE ACET 0.1% OINT 15 GM TUBE 1 APPLIC TOPICAL (08:14)
[2020-03-26] MEDS: dilTIAZem HCL 30 MG TABLET PO ×3 (08:24→17:36)
[2020-03-26 09:43] LABS: Alveolar/Arterial O2 Gradient 440.1 mmHg; Base Excess ABG 6.7 mEq/l (+/-2.0); Fractional Inspired Oxygen 75 %; HCO3 ABG 29.4 mEq/l (22.0-26.0); Oxygen Content ABG 17.1 %vol (16.0-22.0); Oxygen Saturation ABG 92.6 % (95.0-100.0); Oxyhemoglobin 90.2 % THb (90.0-100.0); PCO2 ABG 35.7 mmHg (35.0-45.0); PO2 ABG 56.7 mmHg (80.0-100.0); PO2 FiO2 Ratio Arterial Blood 0.76 %; Total Hemoglobin 13.5 g/dL (12.0-18.0)
[2020-03-26 09:48] LABS: pH ABG 7.534 (7.350-7.450)
[2020-03-26 09:49] LABS: Device HIGH FLOW NASAL CANN; Modified Allen's Test Pass; Site Drawn LEFT RADIAL
[2020-03-26 10:07] LABS: Glucose Point of Care 186 (65-105)
[2020-03-26] MEDS: INSULIN ASPART (*BKC) 100 UNITS/ML SUB-Q ×2 (11:51→17:04)
--- NOTE | 2020-03-26 12:26 | PM.IMPN ---
Progress Note: A&P Assessment and Plan (1) Acute respiratory failure due to COVID-19: Code(s): U07.1 - COVID-19; J96.00 - Acute respiratory failure, unspecified whether with hypoxia or hypercapnia Status: Acute Assessment and Plan: Suspect x-ray findings and respiratory failure secondary to his COVID pneumonia. Diagnosis on the and became more hypoxic 6-7 days later as often happens and started on Decadron on the . finished 10 day course of Decadron today 03/26. Too late in the course to consider remdesivir He is actually at least 15 days out and probably not contagious at this point so droplet isolation has not been imposed Prognosis guarded and pt is a DNR (2) Pneumonia: Code(s): J18.9 - Pneumonia, unspecified organism Status: Acute Assessment and Plan: Probable viral. Was empirically started on levofloxacin and will continue that at present time though suspicion for bacterial pneumonia is low (3) DVT prophylaxis: Code(s): Z29.9 - Encounter for prophylactic measures, unspecified Status: Acute Assessment and Plan: Pradaxa (4) Congestive heart failure: Code(s): I50.9 - Heart failure, unspecified Status: Acute Assessment and Plan: Chest x-ray could be related to heart failure also and BNP is elevated. Treating with IV Lasix and echo EF of 45-50%. Has been on diltiazem to control ventricular rate and will continue since EF not too low (5) Atrial fibrillation: Code(s): I48.91 - Unspecified atrial fibrillation Status: Acute Assessment and Plan: Chronic controlled ventricular response. Continue Pradaxa diltiazem at present time (6) COPD (chronic obstructive pulmonary disease): Code(s): J44.9 - Chronic obstructive pulmonary disease, unspecified Status: Acute Assessment and Plan: Finish course of Decadron for COVID 03/26 and continue inhalers (7) Diabetes type 2, controlled: Code(s): E11.9 - Type 2 diabetes mellitus without complications Status: Acute Assessment and Plan: Low-dose sliding scale and A1c only 6.2 and added low dose lantus for coverage with dexamethasone rx BS should fall off steroids (8) Hypertension: Code(s): I10 - Essential (primary) hypertension Status: Acute Assessment and Plan: Blood pressure well controlled with diuretic and diltiazem continue to monitor (9) Hypothyroidism: Code(s): E03.9 - Hypothyroidism, unspecified Status: Acute Assessment and Plan: Continue thyroid replacement (10) Obstructive sleep apnea: Code(s): G47.33 - Obstructive sleep apnea (adult) (pediatric) Status: Acute Assessment and Plan: Continue high flow 02 only. sats fell with cpap Subjective Date/time seen: 03/26/20 12:26 Interval history: Date of visit 03/26. 79-year-old hypertensive type 2 diabetic with recent diagnosis COVID sent to ER for evaluation for increasing hypoxia. Had been started on dexamethasone and continued here. This a.m. states still short of breath but no chest pain or pedal edema. Exam Narrative: Exam Narrative: Blood pressure 126/74 pulse is 78 respirations 20 per minute saturating 91% on 12L nasal cannula afebrile Pupils equal reactive light sclera anicteric Neck supple Lungs diffuse fine crackles posteriorly CV irregular no murmurs Abdomen soft nontender bowel sounds present Extremities no edema dorsalis pedis posterior tibial 1 to 2+ with marked venous stasis changes bilaterally Neuro alert pleasant cooperative no focal deficits but very hard of hearing Psych affect appears appropriate Objective Data Vital Signs Vital Signs: Vital Signs - 24 hr 03/25/20 12:55 03/25/20 14:00 03/25/20 16:00 Temperature 36.6 C Pulse Rate 84 72 72 Respiratory Rate 20 22 H Blood Pressure 144/59 H Pulse Oximetry 93 97 03/25/20 16:50 03/25/20 20:30 03/25/20 20:36 Temperature P
[2020-03-26 12:42] LABS: Glucose Point of Care 286 (65-105)
--- NOTE | 2020-03-26 13:45 | PC.NURSE ---
call placed to Justin Gan (JAK) to update him that patient was moved to IMU room 210. Updated family regarding increased need for oxygen as well.
[2020-03-26] MEDS: diphenhydrAMINE HCl CAP 25 MG CAPSULE 50 MG PO (18:38)
[2020-03-26 19:03] LABS: Glucose Point of Care 300 (65-105)
[2020-03-26 20:29] LABS: Glucose Point of Care 438 (65-105)
[2020-03-26] MEDS: ALBUTEROL SULFATE (*SP) INHALER 1 PUFF (20:42)
[2020-03-26] MEDS: ATORVASTATIN 10 MG TABLET PO (21:18)
[2020-03-26] MEDS: PANTOPRAZOLE 40 MG TABLET PO (21:18)
[2020-03-26] MEDS: INSULIN GLARGINE (*BKC) 100 UNITS/ML 10 UNITS SUB-Q (23:29)
[2020-03-27] VITALS (18 sets, daily range): BP systolic 134–147; BP diastolic 52–76; PULSE 72–110; RESP 20–34; TEMP 35.6–36.3; O2SAT 84–97
[2020-03-27 04:43] LABS: Glucose Point of Care 159 (65-105)
[2020-03-27] MEDS: LEVOTHYROXINE SODIUM 125 MCG TABLET PO (06:06)
[2020-03-27 06:25] LABS: Basophils Absolute Auto 0.1 K/mm3 (0.0-0.1); Basophils Percent Auto 0.5 % (0.2-1.2); Eosinophils Absolute Auto 0.1 K/mm3 (0-0.3); Eosinophils Percent Auto 0.2 % (0-4.4); Hematocrit 33.6 % (42.0-52.0); Hemoglobin 11.6 g/dL (14.0-18.0); Immature Granulocyte Absolute 1.22 K/mm3 (0.00-0.031); Immature Granulocyte Percent A 5.4 % (0-0.5); Lymphocytes Absolute Auto 1.11 K/mm3 (0.9-3.2); Lymphocytes Percent Auto 4.9 % (18.3-44.2); Mean Corpuscular HGB Conc 34.5 g/dl (32-36); Mean Corpuscular Hemoglobin 32.1 pg (26-34); Mean Corpuscular Volume 93.1 fl (80-100); Mean Platelet Volume 9.7 fl (7.4-10.4); Monocytes Absolute Auto 0.6 K/mm3 (0.1-0.6); Monocytes Percent Auto 2.6 % (2.6-8.5); Neutrophils Absolute Auto 19.6 K/mm3 (1.3-6.7); Neutrophils Percent Auto 86.4 % (45.5-73.1); Platelet Count Result 208 k/mm3 (150-375); Red Blood Count 3.61 M/mm3 (4.6-6.20); White Blood Count 22.7 K/mm3 (4.5-10.0)
[2020-03-27 06:42] LABS: D Dimer 3.34 ug/mL (<0.48)
[2020-03-27 07:36] LABS: Alanine Aminotransferase 21 U/L (4-50); Albumin Level 2.8 g/dL (3.5-5.1); Alkaline Phosphatase 83 U/L (38-126); Anion Gap 4 mmol/L (8-16); Aspartate Amino Transferase 25 U/L (17-59); Bilirubin,Total 0.9 mg/dL (0.2-1.3); Blood Urea Nitrogen 26 mg/dL (9-20); CRP 14.1 mg/dL (<1.0); Carbon Dioxide 35 mmol/L (22-30); Chloride 95 mmol/L (98-107); Estimated CRCL calculation 76 ml/min; Estimated Glomerular Filt Rate > 60; Glucose 135 mg/dL (75-110); Lactate Dehydrogenase 1293 U/L (313-618); Potassium 3.7 mmol/L (3.4-5.0); Sodium 134 mmol/L (137-145)
[2020-03-27 09:17] LABS: Glucose Point of Care 124 (65-105)
[2020-03-27] MEDS: dilTIAZem HCL 30 MG TABLET PO ×3 (09:50→17:42)
[2020-03-27] MEDS: DABIGATRAN ETEXILATE 150 MG CAPSULE PO ×2 (09:50→21:00)
[2020-03-27] MEDS: DOCUSATE SODIUM 100 MG CAPSULE PO ×2 (09:51→17:44)
[2020-03-27] MEDS: FINASTERIDE 5 MG TABLET PO (09:51)
[2020-03-27] MEDS: polyethylene glycoL 3350 17 GM POWD.PACK PO (09:52)
[2020-03-27] MEDS: EZETIMIBE 10 MG TABLET PO (09:53)
[2020-03-27] MEDS: SODIUM CHLORIDE 1 GM TABLET PO (09:54)
[2020-03-27] MEDS: GABAPENTIN 100 MG CAPSULE PO (09:54)
[2020-03-27] MEDS: ASPIRIN 81 MG ENTERIC TABLET PO (09:54)
[2020-03-27] MEDS: SPIRONOLACTONE 25 MG TABLET PO ×2 (09:54→17:42)
[2020-03-27] MEDS: TRIAMCINOLONE ACET 0.1% OINT 15 GM TUBE 1 APPLIC TOPICAL (09:55)
[2020-03-27] MEDS: ALBUTEROL SULFATE (*SP) AEROSOL 1 PUFF 2 PUFF INHALATION ×3 (10:00→21:14)
[2020-03-27] MEDS: traMADol HCL (*CRX) 50 MG TABLET PO (10:01)
[2020-03-27] MEDS: FUROSEMIDE INJ 40 MG/4 ML VIAL IV PUSH (13:42)
[2020-03-27] MEDS: INSULIN ASPART (*BKC) 100 UNITS/ML SUB-Q ×2 (13:49→20:00)
[2020-03-27 14:30] LABS: Glucose Point of Care 209 (65-105)
--- NOTE | 2020-03-27 15:10 | PCRCNOTE ---
Window of time for administration has passed. See next scheduled administration.
--- NOTE | 2020-03-27 17:19 | PM.IMPN ---
Progress Note: A&P Assessment and Plan (1) Acute respiratory failure due to COVID-19: Code(s): U07.1 - COVID-19; J96.00 - Acute respiratory failure, unspecified whether with hypoxia or hypercapnia Status: Acute Assessment and Plan: Suspect x-ray findings and respiratory failure secondary to his COVID pneumonia. Diagnosis on the and became more hypoxic 6-7 days later as often happens and started on Decadron on the . finished 10 day course of Decadron today 03/26. Too late in the course to consider remdesivir He is actually at least 16 days out and probably not contagious at this point Prognosis guarded and pt is a DNR (2) Pneumonia: Code(s): J18.9 - Pneumonia, unspecified organism Status: Acute Assessment and Plan: Probable viral. Was empirically started on levofloxacin and will continue that at present time though suspicion for bacterial pneumonia is low wbc elevation felt secondary to steroids and will follow (3) DVT prophylaxis: Code(s): Z29.9 - Encounter for prophylactic measures, unspecified Status: Acute Assessment and Plan: Pradaxa (4) Congestive heart failure: Code(s): I50.9 - Heart failure, unspecified Status: Acute Assessment and Plan: Chest x-ray could be related to heart failure also and BNP is elevated. Treating with IV Lasix and echo EF of 45-50%. Has been on diltiazem to control ventricular rate and will continue since EF not too low (5) Atrial fibrillation: Code(s): I48.91 - Unspecified atrial fibrillation Status: Acute Assessment and Plan: Chronic controlled ventricular response. Continue Pradaxa diltiazem at present time (6) COPD (chronic obstructive pulmonary disease): Code(s): J44.9 - Chronic obstructive pulmonary disease, unspecified Status: Acute Assessment and Plan: Finish course of Decadron for COVID 03/26 and continue inhalers (7) Diabetes type 2, controlled: Code(s): E11.9 - Type 2 diabetes mellitus without complications Status: Acute Assessment and Plan: Low-dose sliding scale and A1c only 6.2 and added low dose lantus for coverage with dexamethasone rx BS should fall off steroids and today FBS 135 (8) Hypertension: Code(s): I10 - Essential (primary) hypertension Status: Acute Assessment and Plan: Blood pressure well controlled with diuretic and diltiazem continue to monitor (9) Hypothyroidism: Code(s): E03.9 - Hypothyroidism, unspecified Status: Acute Assessment and Plan: Continue thyroid replacement (10) Obstructive sleep apnea: Code(s): G47.33 - Obstructive sleep apnea (adult) (pediatric) Status: Acute Assessment and Plan: Continue high flow 02 only. sats fell with cpap Subjective Date/time seen: 03/27/20 17:19 Interval history: Date of visit 03/27. 79-year-old hypertensive type 2 diabetic with recent diagnosis COVID sent to ER for evaluation for increasing hypoxia. Had been started on dexamethasone and continued here. This a.m. states still short of breath but no chest pain or pedal edema. Exam Narrative: Exam Narrative: Blood pressure 138/64 pulse is 86 respirations 22 per minute saturating 92% on Airvo 60LPM with EIO2 80% Pupils equal reactive light sclera anicteric Neck supple Lungs diffuse fine crackles posteriorly CV irregular no murmurs Abdomen soft nontender bowel sounds present Extremities no edema dorsalis pedis posterior tibial 1 to 2+ with marked venous stasis changes bilaterally Neuro alert pleasant cooperative no focal deficits but very hard of hearing Psych affect appears appropriate Objective Data Vital Signs Vital Signs: Vital Signs - 24 hr 03/26/20 20:00 03/26/20 20:43 03/26/20 20:44 Temperature 36.5 C Pulse Rate 82 72 Respiratory Rate 20 20 Blood Pressure 136/67 Pulse Oximetry 94 96 03/26/20 22:00 03/26/20 23:55
[2020-03-27 18:07] LABS: Glucose Point of Care 164 (65-105)
[2020-03-27] MEDS: ATORVASTATIN 10 MG TABLET PO (21:00)
[2020-03-27] MEDS: PANTOPRAZOLE 40 MG TABLET PO (21:00)
[2020-03-27] MEDS: INSULIN GLARGINE (*BKC) 100 UNITS/ML 10 UNITS SUB-Q (21:00)
[2020-03-28] VITALS (18 sets, daily range): BP systolic 130–142; BP diastolic 49–69; PULSE 80–101; RESP 16–99; TEMP 35.7–36.7; O2SAT 18–97
[2020-03-28] MEDS: ACETAMINOPHEN 500 MG TABLET PO ×2 (01:13→15:57)
[2020-03-28] MEDS: diphenhydrAMINE HCl CAP 25 MG CAPSULE 50 MG PO ×2 (01:14→21:11)
[2020-03-28 02:26] LABS: Glucose Point of Care 274 (65-105)
[2020-03-28] MEDS: LEVOTHYROXINE SODIUM 125 MCG TABLET PO (06:30)
[2020-03-28 06:48] LABS: Basophils Absolute Auto 0.1 K/mm3 (0.0-0.1); Basophils Percent Auto 0.5 % (0.2-1.2); Eosinophils Absolute Auto 0.3 K/mm3 (0-0.3); Eosinophils Percent Auto 1.5 % (0-4.4); Hematocrit 33.4 % (42.0-52.0); Hemoglobin 11.4 g/dL (14.0-18.0); Immature Granulocyte Absolute 0.96 K/mm3 (0.00-0.031); Immature Granulocyte Percent A 4.5 % (0-0.5); Lymphocytes Absolute Auto 0.83 K/mm3 (0.9-3.2); Lymphocytes Percent Auto 3.9 % (18.3-44.2); Mean Corpuscular HGB Conc 34.1 g/dl (32-36); Mean Corpuscular Hemoglobin 31.8 pg (26-34); Mean Corpuscular Volume 93.3 fl (80-100); Mean Platelet Volume 9.6 fl (7.4-10.4); Monocytes Absolute Auto 0.6 K/mm3 (0.1-0.6); Monocytes Percent Auto 2.7 % (2.6-8.5); Neutrophils Absolute Auto 18.5 K/mm3 (1.3-6.7); Neutrophils Percent Auto 86.9 % (45.5-73.1); Platelet Count Result 168 k/mm3 (150-375); Red Blood Count 3.58 M/mm3 (4.6-6.20); Red Cell Distribution Width 13.2 % (11.5-14.5); White Blood Count 21.3 K/mm3 (4.5-10.0)
[2020-03-28 06:56] LABS: Anion Gap 4 mmol/L (8-16); Blood Urea Nitrogen 28 mg/dL (9-20); Calcium 7.6 mg/dL (8.4-10.2); Carbon Dioxide 33 mmol/L (22-30); Chloride 95 mmol/L (98-107); Estimated CRCL calculation 76 ml/min; Estimated Glomerular Filt Rate > 60; Glucose 115 mg/dL (75-110); Potassium 3.7 mmol/L (3.4-5.0); Sodium 132 mmol/L (137-145)
[2020-03-28] MEDS: ALBUTEROL SULFATE (*SP) AEROSOL 1 PUFF 2 PUFF INHALATION ×4 (08:44→19:41)
[2020-03-28 09:09] LABS: Glucose Point of Care 114 (65-105)
--- NOTE | 2020-03-28 09:34 | P.CDI_ITS ---
CDI Query Clarification Request -CHF has been documented -Echo from 03/25 with EF 45-50%, diastolic function is indeterminate - BNP from 03/24 - 3850 -Pt is on Lasix 40mg IV daily Please further specify type and acuity of CHF: * Systolic *Acute * Diastolic *Chronic * Both systolic and diastolic *Acute on Chronic * Unable to determine *Unable to determine
--- NOTE | 2020-03-28 09:34 | WPDCDIQUERY2 ---
CDI Query Clarification Request -CHF has been documented -Echo from 03/25 with EF 45-50%, diastolic function is indeterminate - BNP from 03/24 - 3850 -Pt is on Lasix 40mg IV daily Please further specify type and acuity of CHF: Systolic *Acute Diastolic *Chronic Both systolic and diastolic *Acute on Chronic Unable to determine *Unable to determine
[2020-03-28] MEDS: polyethylene glycoL 3350 17 GM POWD.PACK PO (10:27)
[2020-03-28] MEDS: TRIAMCINOLONE ACET 0.1% OINT 15 GM TUBE 1 APPLIC TOPICAL (10:27)
[2020-03-28] MEDS: FINASTERIDE 5 MG TABLET PO (10:28)
[2020-03-28] MEDS: DABIGATRAN ETEXILATE 150 MG CAPSULE PO ×2 (10:28→21:05)
[2020-03-28] MEDS: dilTIAZem HCL 30 MG TABLET PO ×3 (10:29→17:40)
[2020-03-28] MEDS: EZETIMIBE 10 MG TABLET PO (10:29)
[2020-03-28] MEDS: SODIUM CHLORIDE 1 GM TABLET PO (10:29)
[2020-03-28] MEDS: GABAPENTIN 100 MG CAPSULE PO (10:30)
[2020-03-28] MEDS: SPIRONOLACTONE 25 MG TABLET PO ×2 (10:30→17:43)
[2020-03-28] MEDS: FUROSEMIDE INJ 40 MG/4 ML VIAL IV PUSH (10:30)
[2020-03-28] MEDS: ASPIRIN 81 MG ENTERIC TABLET PO (10:31)
[2020-03-28] MEDS: DOCUSATE SODIUM 100 MG CAPSULE PO ×2 (10:59→17:42)
[2020-03-28 13:20] LABS: Glucose Point of Care 191 (65-105)
--- NOTE | 2020-03-28 14:56 | PCDIET ---
Weekly nutritional screen. Patient is tolerating current diet with adequate intake. No weight loss reported. No nutritional needs at this time.
[2020-03-28 16:19] LABS: Glucose Point of Care 191 (65-105)
--- NOTE | 2020-03-28 17:27 | PM.IMPN ---
Progress Note: A&P Assessment and Plan (1) Acute respiratory failure due to COVID-19: Code(s): U07.1 - COVID-19; J96.00 - Acute respiratory failure, unspecified whether with hypoxia or hypercapnia Status: Acute Assessment and Plan: Suspect x-ray findings and respiratory failure secondary to his COVID pneumonia. Diagnosis on the and became more hypoxic 6-7 days later as often happens and started on Decadron on the . finished 10 day course of Decadron today 03/26. Too late in the course to consider remdesivir He is actually at least 17 days out and probably not contagious at this point Prognosis guarded and pt is a DNR (2) Pneumonia: Code(s): J18.9 - Pneumonia, unspecified organism Status: Acute Assessment and Plan: Probable viral. Was empirically started on levofloxacin and will continue that at present time though suspicion for bacterial pneumonia is low wbc elevation felt secondary to steroids and will follow (3) DVT prophylaxis: Code(s): Z29.9 - Encounter for prophylactic measures, unspecified Status: Acute Assessment and Plan: Pradaxa (4) Congestive heart failure: Code(s): I50.9 - Heart failure, unspecified Status: Acute Assessment and Plan: Chest x-ray could be related to heart failure also and BNP is elevated. Treating with IV Lasix and echo EF of 45-50%. Has been on diltiazem to control ventricular rate and will continue since EF not too low (5) Atrial fibrillation: Code(s): I48.91 - Unspecified atrial fibrillation Status: Acute Assessment and Plan: Chronic controlled ventricular response. Continue Pradaxa diltiazem at present time (6) COPD (chronic obstructive pulmonary disease): Code(s): J44.9 - Chronic obstructive pulmonary disease, unspecified Status: Acute Assessment and Plan: Finished course of Decadron for COVID 03/26 and continue inhalers (7) Diabetes type 2, controlled: Code(s): E11.9 - Type 2 diabetes mellitus without complications Status: Acute Assessment and Plan: Low-dose sliding scale and A1c only 6.2 and added low dose lantus for coverage with dexamethasone rx BS should fall off steroids and today FBS 115 (8) Hypertension: Code(s): I10 - Essential (primary) hypertension Status: Acute Assessment and Plan: Blood pressure well controlled with diuretic and diltiazem continue to monitor (9) Hypothyroidism: Code(s): E03.9 - Hypothyroidism, unspecified Status: Acute Assessment and Plan: Continue thyroid replacement (10) Obstructive sleep apnea: Code(s): G47.33 - Obstructive sleep apnea (adult) (pediatric) Status: Acute Assessment and Plan: Continue high flow 02 only. sats fell with cpap Subjective Date/time seen: 03/28/20 17:27 Interval history: Date of visit 03/28. 79-year-old hypertensive type 2 diabetic with recent diagnosis COVID sent to ER for evaluation for increasing hypoxia. Had been started on dexamethasone and continued here. This a.m. states still short of breath but no chest pain or pedal edema. Exam Narrative: Exam Narrative: Blood pressure 130/62 pulse is 92 respirations 20 per minute saturating 94% on Airvo 50LPM with EIO2 80% Pupils equal reactive light sclera anicteric Neck supple Lungs diffuse fine crackles posteriorly CV irregular no murmurs Abdomen soft nontender bowel sounds present Extremities no edema dorsalis pedis posterior tibial 1 to 2+ with marked venous stasis changes bilaterally Neuro alert pleasant cooperative no focal deficits but very hard of hearing Objective Data Vital Signs Vital Signs: Vital Signs - 24 hr 03/27/20 18:00 03/27/20 20:00 03/27/20 21:14 Temperature Pulse Rate 76 83 Respiratory Rate 34 H Blood Pressure 141/53 H Pulse Oximetry 93 92 03/27/20 22:00 03/27/20 23:46 03/28/20 00:00 Temperature 35.6 C L
[2020-03-28 20:56] LABS: Glucose Point of Care 177 (65-105)
[2020-03-28] MEDS: ATORVASTATIN 10 MG TABLET PO (21:04)
[2020-03-28] MEDS: INSULIN GLARGINE (*BKC) 100 UNITS/ML 10 UNITS SUB-Q (21:06)
[2020-03-28] MEDS: PANTOPRAZOLE 40 MG TABLET PO (21:07)
[2020-03-29] VITALS (19 sets, daily range): BP systolic 143–154; BP diastolic 58–88; PULSE 73–102; RESP 16–26; TEMP 36.1–36.6; O2SAT 62–98
[2020-03-29 04:25] LABS: Basophils Absolute Auto 0.1 K/mm3 (0.0-0.1); Basophils Percent Auto 0.3 % (0.2-1.2); Eosinophils Absolute Auto 0.2 K/mm3 (0-0.3); Eosinophils Percent Auto 0.7 % (0-4.4); Hematocrit 32.6 % (42.0-52.0); Hemoglobin 11.2 g/dL (14.0-18.0); Immature Granulocyte Absolute 0.63 K/mm3 (0.00-0.031); Immature Granulocyte Percent A 2.8 % (0-0.5); Lymphocytes Absolute Auto 0.52 K/mm3 (0.9-3.2); Lymphocytes Percent Auto 2.3 % (18.3-44.2); Mean Corpuscular HGB Conc 34.4 g/dl (32-36); Mean Corpuscular Volume 93.1 fl (80-100); Mean Platelet Volume 9.9 fl (7.4-10.4); Monocytes Absolute Auto 1.1 K/mm3 (0.1-0.6); Monocytes Percent Auto 4.7 % (2.6-8.5); Neutrophils Absolute Auto 19.9 K/mm3 (1.3-6.7); Neutrophils Percent Auto 89.2 % (45.5-73.1); Platelet Count Result 164 k/mm3 (150-375); Red Cell Distribution Width 13.2 % (11.5-14.5); White Blood Count 22.3 K/mm3 (4.5-10.0)
[2020-03-29 04:49] LABS: D Dimer 4.15 ug/mL (<0.48)
[2020-03-29 04:51] LABS: Alanine Aminotransferase 18 U/L (4-50); Albumin Level 2.6 g/dL (3.5-5.1); Alkaline Phosphatase 104 U/L (38-126); Anion Gap 6 mmol/L (8-16); Aspartate Amino Transferase 28 U/L (17-59); Bilirubin,Total 2.3 mg/dL (0.2-1.3); Blood Urea Nitrogen 24 mg/dL (9-20); Calcium 7.8 mg/dL (8.4-10.2); Carbon Dioxide 32 mmol/L (22-30); Chloride 94 mmol/L (98-107); Estimated CRCL calculation 76 ml/min; Estimated Glomerular Filt Rate > 60; Glucose 143 mg/dL (75-110); Lactate Dehydrogenase 1310 U/L (313-618); Potassium 3.7 mmol/L (3.4-5.0); Sodium 132 mmol/L (137-145)
[2020-03-29 05:47] LABS: CRP 33.1 mg/dL (<1.0)
[2020-03-29] MEDS: ALBUTEROL SULFATE (*SP) AEROSOL 1 PUFF 2 PUFF INHALATION ×4 (09:10→20:40)
[2020-03-29] MEDS: EZETIMIBE 10 MG TABLET PO (09:59)
[2020-03-29] MEDS: DABIGATRAN ETEXILATE 150 MG CAPSULE PO ×2 (09:59→21:50)
[2020-03-29] MEDS: SODIUM CHLORIDE 1 GM TABLET PO (09:59)
[2020-03-29] MEDS: SPIRONOLACTONE 25 MG TABLET PO ×2 (09:59→18:09)
[2020-03-29] MEDS: FINASTERIDE 5 MG TABLET PO (09:59)
[2020-03-29] MEDS: ASPIRIN 81 MG ENTERIC TABLET PO (09:59)
[2020-03-29] MEDS: GABAPENTIN 100 MG CAPSULE PO (09:59)
[2020-03-29] MEDS: dilTIAZem HCL 30 MG TABLET PO ×3 (09:59→18:09)
[2020-03-29] MEDS: DOCUSATE SODIUM 100 MG CAPSULE PO ×2 (10:00→18:09)
[2020-03-29] MEDS: FUROSEMIDE INJ 40 MG/4 ML VIAL IV PUSH (10:00)
[2020-03-29] MEDS: polyethylene glycoL 3350 17 GM POWD.PACK PO (10:00)
[2020-03-29] MEDS: TRIAMCINOLONE ACET 0.1% OINT 15 GM TUBE 1 APPLIC TOPICAL (10:00)
[2020-03-29 11:17] LABS: Glucose Point of Care 121 (65-105)
--- NOTE | 2020-03-29 12:39 | PM.IMPN ---
Progress Note: A&P Assessment and Plan (1) Acute respiratory failure due to COVID-19: Code(s): U07.1 - COVID-19; J96.00 - Acute respiratory failure, unspecified whether with hypoxia or hypercapnia Status: Acute Assessment and Plan: Suspect x-ray findings and respiratory failure secondary to his COVID pneumonia. Diagnosis on the and became more hypoxic 6-7 days later as often happens and started on Decadron on the . finished 10 day course of Decadron today 03/26. Too late in the course to consider remdesivir He is actually at least 17 days out and probably not contagious at this point Prognosis guarded and pt is a DNR (2) Pneumonia: Code(s): J18.9 - Pneumonia, unspecified organism Status: Acute Assessment and Plan: Probable viral. Was empirically started on levofloxacin 03/23 through 03/28 but now changed to Ertapenum. Suspicion for bacterial pneumonia is low wbc elevation but at a plateau. [place] secondary to steroids and will follow (3) Congestive heart failure: Code(s): I50.9 - Heart failure, unspecified Status: Acute Assessment and Plan: Chest x-ray could be related to heart failure also and BNP is elevated. Treating with IV Lasix and echo EF of 45-50%. Has been on diltiazem to control ventricular rate and will continue since EF not too low. (4) Atrial fibrillation: Code(s): I48.91 - Unspecified atrial fibrillation Status: Acute Assessment and Plan: Chronic controlled ventricular response. Continue Pradaxa diltiazem at present time (5) COPD (chronic obstructive pulmonary disease): Code(s): J44.9 - Chronic obstructive pulmonary disease, unspecified Status: Acute Assessment and Plan: Finished course of Decadron for COVID 03/26 and continue inhalers (6) Diabetes type 2, controlled: Code(s): E11.9 - Type 2 diabetes mellitus without complications Status: Acute Assessment and Plan: Glucose reviewed on 03/29. Low-dose sliding scale and A1c only 6.2 and added low dose lantus for coverage with dexamethasone rx BS should fall off steroids and today FBS 115 (7) Hypertension: Code(s): I10 - Essential (primary) hypertension Status: Acute Assessment and Plan: Patient's blood pressure was reviewed on 03/29 Blood pressure remains well controlled. Will continue current medications with diltiazem. Continue to monitor (8) Hypothyroidism: Code(s): E03.9 - Hypothyroidism, unspecified Status: Acute Assessment and Plan: Continue thyroid replacement. Check TSH (9) Obstructive sleep apnea: Code(s): G47.33 - Obstructive sleep apnea (adult) (pediatric) Status: Acute Assessment and Plan: Continue high flow 02 only. sats fell with CPAP. (10) DVT prophylaxis: Code(s): Z29.9 - Encounter for prophylactic measures, unspecified Status: Acute Assessment and Plan: Pradaxa (11) Urinary tract infection due to ESBL Klebsiella: Code(s): N39.0 - Urinary tract infection, site not specified; B96.89 - Other specified bacterial agents as the cause of diseases classified elsewhere Status: Acute Assessment and Plan: UCx growing ESBL Klebsiella. Will stop Levaquin and start Ertapenum. Monitor closely for PCN reaction. Subjective Date/time seen: 03/29/20 12:39 Interval history: Date of visit 03/29 79yo male with HTN, DM and recent diagnosis COVID sent to ER for evaluation for increasing hypoxia. Assuming care. Chart reviewed. Patient extremely hard of hearing limiting history. He denies any chest pain. No significant shortness of breath. Eating poorly. He was having urinary frequency and Soto catheter was placed. Off NRB mask and on AirVo at 90% FiO2 Exam Narrative: Exam Narrative: AF 97.6 154/64 91 21 Gen - NARD sitting up in bed Chest - inspiratory crackles anteriorly and posterir
[2020-03-29 14:30] LABS: Glucose Point of Care 164 (65-105)
[2020-03-29] MEDS: ERTAPENEM 1 GM/NS 50 ML 1 GM/50 ML BAG IVPB (18:10)
[2020-03-29] MEDS: PANTOPRAZOLE 40 MG TABLET PO (21:50)
[2020-03-29] MEDS: INSULIN GLARGINE (*BKC) 100 UNITS/ML 10 UNITS SUB-Q (21:50)
[2020-03-29] MEDS: ATORVASTATIN 10 MG TABLET PO (21:50)
[2020-03-29 21:58] LABS: Glucose Point of Care 185 (65-105)
[2020-03-30] VITALS (20 sets, daily range): BP systolic 140–165; BP diastolic 60–78; PULSE 82–105; RESP 20–24; TEMP 35.6–37.4; O2SAT 94–100
[2020-03-30] MEDS: ALBUTEROL SULFATE NEB 2.5 MG/0.5 ML INH 5 MG INHALATION ×4 (02:26→22:17)
[2020-03-30 03:45] LABS: Glucose Point of Care 151 (65-105)
[2020-03-30 04:39] LABS: Hematocrit 30.3 % (42.0-52.0); Hemoglobin 10.5 g/dL (14.0-18.0); Mean Corpuscular HGB Conc 34.7 g/dl (32-36); Mean Corpuscular Hemoglobin 31.9 pg (26-34); Mean Corpuscular Volume 92.1 fl (80-100); Mean Platelet Volume 9.6 fl (7.4-10.4); Platelet Count Result 188 k/mm3 (150-375); Red Blood Count 3.29 M/mm3 (4.6-6.20); White Blood Count 22.1 K/mm3 (4.5-10.0)
[2020-03-30 05:02] LABS: Alanine Aminotransferase 17 U/L (4-50); Albumin Level 2.6 g/dL (3.5-5.1); Alkaline Phosphatase 113 U/L (38-126); Anion Gap 5 mmol/L (8-16); Aspartate Amino Transferase 28 U/L (17-59); Bilirubin,Total 2.3 mg/dL (0.2-1.3); Blood Urea Nitrogen 24 mg/dL (9-20); Calcium 7.8 mg/dL (8.4-10.2); Carbon Dioxide 34 mmol/L (22-30); Chloride 93 mmol/L (98-107); Estimated CRCL calculation 87 ml/min; Estimated Glomerular Filt Rate > 60; Glucose 135 mg/dL (75-110); Lactate Dehydrogenase 1133 U/L (313-618); Potassium 3.8 mmol/L (3.4-5.0); Sodium 132 mmol/L (137-145)
[2020-03-30 05:40] LABS: CRP 34.2 mg/dL (<1.0)
[2020-03-30] MEDS: LEVOTHYROXINE SODIUM 125 MCG TABLET PO (06:50)
[2020-03-30 09:07] LABS: Glucose Point of Care 115 (65-105)
[2020-03-30] MEDS: ASPIRIN 81 MG ENTERIC TABLET PO (09:33)
[2020-03-30] MEDS: SPIRONOLACTONE 25 MG TABLET PO (09:33)
[2020-03-30] MEDS: DABIGATRAN ETEXILATE 150 MG CAPSULE PO (09:33)
[2020-03-30] MEDS: EZETIMIBE 10 MG TABLET PO (09:34)
[2020-03-30] MEDS: FINASTERIDE 5 MG TABLET PO (09:34)
[2020-03-30] MEDS: GABAPENTIN 100 MG CAPSULE PO (09:34)
[2020-03-30] MEDS: FUROSEMIDE INJ 40 MG/4 ML VIAL IV PUSH (09:34)
[2020-03-30] MEDS: DOCUSATE SODIUM 100 MG CAPSULE PO (09:34)
[2020-03-30] MEDS: polyethylene glycoL 3350 17 GM POWD.PACK PO (09:36)
[2020-03-30] MEDS: TRIAMCINOLONE ACET 0.1% OINT 15 GM TUBE 1 APPLIC TOPICAL (09:49)
[2020-03-30] MEDS: dilTIAZem HCL 30 MG TABLET PO (09:53)
[2020-03-30] MEDS: SODIUM CHLORIDE 1 GM TABLET PO (09:53)
[2020-03-30 11:57] LABS: Glucose Point of Care 116 (65-105)
--- NOTE | 2020-03-30 12:16 | PM.IMPN ---
Progress Note: A&P Assessment and Plan (1) Acute respiratory failure due to COVID-19: Code(s): U07.1 - COVID-19; J96.00 - Acute respiratory failure, unspecified whether with hypoxia or hypercapnia Status: Acute Assessment and Plan: Suspect x-ray findings and respiratory failure secondary to his COVID pneumonia. Diagnosis on the 03/11 and became more hypoxic 6-7 days later as often happens and started on Decadron on the . Finished 10 day course of Decadron 03/26. Too late in the course to consider remdesivir. He is aspirating now as well. Will change to Primaxin. Prognosis is guarded and pt is a DNR. May need NGT for tube feedings. Caled family but no answer at phone number listed. (2) Pneumonia: Code(s): J18.9 - Pneumonia, unspecified organism Status: Acute Assessment and Plan: Probable viral. Was empirically started on levofloxacin 03/23 through 03/28 but now changed to Ertapenum. Suspicion for bacterial pneumonia is low. WBC still elevation but at a plateau. [place] secondary to steroids and/or UTI. (3) Congestive heart failure: Code(s): I50.9 - Heart failure, unspecified Status: Acute Assessment and Plan: Chest x-ray could be related to heart failure also and BNP is elevated to 3850. Echo EF of 45-50%. Treating with IV Lasix with negative fluid balance yesterday. Has been on diltiazem to control ventricular rate and will continue since EF not too low. (4) Atrial fibrillation: Code(s): I48.91 - Unspecified atrial fibrillation Status: Acute Assessment and Plan: Chronic controlled ventricular response. Continue Pradaxa and diltiazem at present time (5) COPD (chronic obstructive pulmonary disease): Code(s): J44.9 - Chronic obstructive pulmonary disease, unspecified Status: Acute Assessment and Plan: Finished course of Decadron for COVID 03/26. Change to pulmicort respules since probably not able to get much of the inhalers (6) Diabetes type 2, controlled: Code(s): E11.9 - Type 2 diabetes mellitus without complications Status: Acute Assessment and Plan: A1c 6.2 Glucose reviewed on 03/30. Glucose well controlled. Continue low-dose sliding scale but hold low dose lantus due to NPO (7) Hypertension: Code(s): I10 - Essential (primary) hypertension Status: Acute Assessment and Plan: Patient's blood pressure was reviewed on 03/30 Blood pressure remains reasonably well controlled. Will continue current medications with diltiazem. Continue to monitor (8) Hypothyroidism: Code(s): E03.9 - Hypothyroidism, unspecified Status: Acute Assessment and Plan: TSH normal. Continue thyroid replacement. (9) Obstructive sleep apnea: Code(s): G47.33 - Obstructive sleep apnea (adult) (pediatric) Status: Acute Assessment and Plan: Continue high flow 02 only. Desaturation with CPAP. (10) DVT prophylaxis: Code(s): Z29.9 - Encounter for prophylactic measures, unspecified Status: Acute Assessment and Plan: Pradaxa (11) Urinary tract infection due to ESBL Klebsiella: Code(s): N39.0 - Urinary tract infection, site not specified; B96.89 - Other specified bacterial agents as the cause of diseases classified elsewhere Status: Acute Assessment and Plan: UCx growing ESBL Klebsiella. Started Ertapenum Day 2. No evidence of PCN reaction. Change to Primaxin since may be aspirating Subjective Date/time seen: 03/30/20 12:16 Interval history: Date of visit 03/30 79yo male with HTN, DM and recent diagnosis COVID sent to ER for evaluation for increasing hypoxia. Patient extremely hard of hearing which limits history. Hewas weaned to AirVo but had witnessed choking episode then desaturation when taking his pills and RN felt he may have aspirated. Patient back on NRB mask. Also with mouth bleed
[2020-03-30 16:57] LABS: Glucose Point of Care 125 (65-105)
[2020-03-30 20:32] LABS: Glucose Point of Care 157 (65-105)
[2020-03-30] MEDS: BUDESONIDE RESPULE NEB 0.5 MG/2 ML AMP INHALATION (22:17)
[2020-03-31] VITALS (21 sets, daily range): BP systolic 113–149; BP diastolic 49–78; PULSE 73–103; RESP 20–24; TEMP 36–37.4; O2SAT 84–100
[2020-03-31] MEDS: LEVOTHYROXINE SODIUM 125 MCG TABLET PO (04:49)
[2020-03-31 05:57] LABS: Basophils Percent Auto 0.2 % (0.2-1.2); Eosinophils Absolute Auto 0.2 K/mm3 (0-0.3); Eosinophils Percent Auto 0.9 % (0-4.4); Hemoglobin 10.5 g/dL (14.0-18.0); Immature Granulocyte Absolute 0.28 K/mm3 (0.00-0.031); Immature Granulocyte Percent A 1.4 % (0-0.5); Lymphocytes Absolute Auto 0.54 K/mm3 (0.9-3.2); Lymphocytes Percent Auto 2.7 % (18.3-44.2); Mean Corpuscular HGB Conc 33.9 g/dl (32-36); Mean Corpuscular Hemoglobin 32.2 pg (26-34); Mean Corpuscular Volume 95.1 fl (80-100); Mean Platelet Volume 9.6 fl (7.4-10.4); Monocytes Absolute Auto 1.5 K/mm3 (0.1-0.6); Monocytes Percent Auto 7.6 % (2.6-8.5); Neutrophils Absolute Auto 17.3 K/mm3 (1.3-6.7); Neutrophils Percent Auto 87.2 % (45.5-73.1); Platelet Count Result 172 k/mm3 (150-375); Red Blood Count 3.26 M/mm3 (4.6-6.20); Red Cell Distribution Width 13.1 % (11.5-14.5); White Blood Count 19.9 K/mm3 (4.5-10.0)
[2020-03-31 07:10] LABS: Albumin Level 2.6 g/dL (3.5-5.1); Anion Gap 5 mmol/L (8-16); Blood Urea Nitrogen 27 mg/dL (9-20); CRP 36.7 mg/dL (<1.0); Calcium 7.8 mg/dL (8.4-10.2); Carbon Dioxide 33 mmol/L (22-30); Chloride 92 mmol/L (98-107); Estimated CRCL calculation 100 ml/min; Estimated Glomerular Filt Rate > 60; Glucose 160 mg/dL (75-110); Lactate Dehydrogenase 970 U/L (313-618); Phosphorus 3.6 mg/dL (2.5-4.5); Potassium 3.8 mmol/L (3.4-5.0); Sodium 130 mmol/L (137-145)
[2020-03-31 08:36] LABS: Glucose Point of Care 157 (65-105)
[2020-03-31] MEDS: FUROSEMIDE INJ 40 MG/4 ML VIAL IV PUSH (08:56)
[2020-03-31] MEDS: DEXAMETHASONE SOD PHOS INJ 4 MG/ML VIAL 6 MG IV PUSH (08:57)
[2020-03-31] MEDS: TRIAMCINOLONE ACET 0.1% OINT 15 GM TUBE 1 APPLIC TOPICAL (08:57)
[2020-03-31] MEDS: PANTOPRAZOLE SODIUM IV 40 MG VIAL IV PUSH (09:10)
[2020-03-31] MEDS: BUDESONIDE RESPULE NEB 0.5 MG/2 ML AMP INHALATION ×2 (09:19→22:31)
[2020-03-31] MEDS: ALBUTEROL SULFATE NEB 2.5 MG/0.5 ML INH 5 MG INHALATION ×3 (09:19→22:31)
[2020-03-31] MEDS: CHOLECALCIFEROL 1,000 UNITS TABLET 5000 UNITS PO (12:46)
[2020-03-31] MEDS: dilTIAZem HCL 30 MG TABLET PO ×2 (12:47→16:40)
[2020-03-31] MEDS: DABIGATRAN ETEXILATE 150 MG CAPSULE PO ×2 (12:47→20:33)
[2020-03-31] MEDS: INSULIN ASPART (*BKC) 100 UNITS/ML SUB-Q ×2 (12:48→18:00)
--- NOTE | 2020-03-31 12:52 | PCSTNOTE ---
Bedside Swallow Evaluation This pt was seen for a bedside swallow evaluation after a witness choking episode. His nurse reports that he has typically done well with food, liquid, and pills. The pt is weak and was wearing a nasal canula and nonrebreather and was going to be placed on BiPAP soon after this evaluation. He was seated upright at 60 degrees and his mask was removed between trials for this evaluation. O2 saturation remained at 93 or higher throughout. The pt coughed following trials of thin liquid via cup. No clinical signs of aspiration occurred with mildly thick liquid via cup. The pt eagerly ate all the puree and extremely thick liquid (pudding) presented with no signs of aspiration. When offered solid food, he indicated that he did not want to chew at all. It is recommended that the pt receive an oral diet of pureed food (4) and mildly thick liquids (2). Position during intake should be as upright as possible. Therapy should focus on the following: -tongue base retraction exercises -effortful swallow exercises -laryngeal elevation exercises
--- NOTE | 2020-03-31 13:50 | PM.IMPN ---
Progress Note: A&P Assessment and Plan (1) Acute respiratory failure due to COVID-19: Code(s): U07.1 - COVID-19; J96.00 - Acute respiratory failure, unspecified whether with hypoxia or hypercapnia Status: Acute Assessment and Plan: Suspect x-ray findings and respiratory failure secondary to his COVID pneumonia. Diagnosis on the 03/11 and became more hypoxic 6-7 days later as often happens and started on Decadron on the . Finished 10 day course of Decadron 03/26. Too late in the course to consider remdesivir. He may be aspirating. ST did bedside and patient will need pureed with thickened liquids. Watch for dehydration if unable to tolerate oral intake. Continue Primaxin. Prognosis is guarded and pt is a DNR. May need NGT for tube feedings. Appreciate Pulmonary input. (2) Pneumonia: Code(s): J18.9 - Pneumonia, unspecified organism Status: Acute Assessment and Plan: Probable viral/COVID. Was empirically started on levofloxacin 03/23 through 03/28 but then changed to Ertapenum due to UTI. Suspicion for bacterial pneumonia is low but consider aspiration. WBC better today. Abx changed to Primaxin given the possibility for aspiration. Wean O2 as tolerated (3) Congestive heart failure: Code(s): I50.9 - Heart failure, unspecified Status: Acute Assessment and Plan: Chest x-ray could be related to heart failure also and BNP is elevated to 3850. Echo EF of 45-50%. Treating with IV Lasix with negative fluid balance past few days. Has been on diltiazem to control ventricular rate and will continue since EF not too low. (4) Atrial fibrillation: Code(s): I48.91 - Unspecified atrial fibrillation Status: Acute Assessment and Plan: Chronic controlled ventricular response. Continue Pradaxa and diltiazem at present time (5) COPD (chronic obstructive pulmonary disease): Code(s): J44.9 - Chronic obstructive pulmonary disease, unspecified Status: Acute Assessment and Plan: Finished course of Decadron for COVID 03/26 but resumed today. Changed to pulmicort respules since probably not able to get much of the inhalers (6) Diabetes type 2, controlled: Code(s): E11.9 - Type 2 diabetes mellitus without complications Status: Acute Assessment and Plan: A1c 6.2 Glucose reviewed on 03/31 Glucose well controlled. Continue low-dose sliding scale. Diet resumed so okay to resume Lantus (7) Hypertension: Code(s): I10 - Essential (primary) hypertension Status: Acute Assessment and Plan: Patient's blood pressure was reviewed on 03/31 Blood pressure remains reasonably well controlled. Will continue current medications with diltiazem. Continue to monitor (8) Hypothyroidism: Code(s): E03.9 - Hypothyroidism, unspecified Status: Acute Assessment and Plan: TSH normal. Continue thyroid replacement. (9) Obstructive sleep apnea: Code(s): G47.33 - Obstructive sleep apnea (adult) (pediatric) Status: Acute Assessment and Plan: Continue high flow 02 only. Desaturation with CPAP. (10) DVT prophylaxis: Code(s): Z29.9 - Encounter for prophylactic measures, unspecified Status: Acute Assessment and Plan: Pradaxa (11) Urinary tract infection due to ESBL Klebsiella: Code(s): N39.0 - Urinary tract infection, site not specified; B96.89 - Other specified bacterial agents as the cause of diseases classified elsewhere Status: Acute Assessment and Plan: UCx growing ESBL Klebsiella. Started Ertapenum but changed to Primaxin given concern for aspiration Day 3 of abx. No evidence of PCN reaction. Subjective Date/time seen: 03/31/20 13:50 Interval history: Date of visit 03/31 79yo male with HTN, DM and recent diagnosis COVID sent to ER for evaluation for increasing hypoxia. Patient extremely hard of hearing wh
[2020-03-31 14:06] LABS: Glucose Point of Care 210 (65-105)
--- NOTE | 2020-03-31 14:22 | PM.CNPUL ---
Assessment and Plan Assessment and plan (1) Urinary tract infection due to ESBL Klebsiella: Code(s): N39.0 - Urinary tract infection, site not specified; B96.89 - Other specified bacterial agents as the cause of diseases classified elsewhere Status: Acute Assessment and Plan: continue Imipenem for 5-7 days (2) COPD (chronic obstructive pulmonary disease): Code(s): J44.9 - Chronic obstructive pulmonary disease, unspecified Status: Acute Assessment and Plan: duonebs Q6 Pulmicort 0.5 mg bid (3) Obstructive sleep apnea: Code(s): G47.33 - Obstructive sleep apnea (adult) (pediatric) Status: Acute (4) Acute respiratory failure due to COVID-19: Code(s): U07.1 - COVID-19; J96.00 - Acute respiratory failure, unspecified whether with hypoxia or hypercapnia Status: Acute Assessment and Plan: May need BIPAP soon if he starts to tire out or muscle fatigue. Would suggest starting on 18/02, 100% and backup rate of 20. He's DNR/DNI appropriately so. Prognosis is very poor. Continue Dexamethasone History of Present Illness History of Present Illness Consult date: 03/31/20 Chief complaint: Acute on chronic respiratory failure Narrative: 79 y/o male with acute hypoxemic respiratory failure due to late presentation of COVID-19. Out of window for Remdesivir but on Dexamethaosne. Also started on Imipenem for possible aspiration. Urine shows MDR Klebsiella suscipble Imipenem. He's hard of hear hearing was having a swallow study when I examined him. He denied being fatigued or tired. He's on high flow with a non rebreather face mask currently Review of Systems Review of Systems: All systems reviewed & are unremarkable except as noted in HPI and below PMFSH Past Medical History Medical History Atrial fibrillation Congestive heart failure COPD (chronic obstructive pulmonary disease) Diabetes type 2, controlled GERD (gastroesophageal reflux disease) Hyperlipidemia Hypertension Hypothyroidism Obstructive sleep apnea Restless leg syndrome Surgical History Surgical History History of appendectomy Pacemaker Family History Family History Father Family history of malignant neoplasm, Onset Age: 70 Mother Family history of malignant neoplasm, Onset Age: 70 Social History Social History Social History: Current resident of local [facility], has not smoked for approximately 20 years 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 Smoking status: Former smoker Tobacco type: cigarettes Second hand tobacco smoke exposure: Yes Smoking end date: 05/06/99 Alcohol intake: unknown Substance use: never Substance use type: does not use Living arrangements: [facility] Additional occupation/education comments: Retired [employer] Gender identity (if verbalized by the patient): Male Sexual Orientation (if Verbalized by the Patient): Straight or Heterosexual Spiritual care concerns: No Meds Home Medications and Allergies Home Medications Medication Instructions Recorded Confirmed Type atorvastatin 10 mg PO HS 11/03/19 03/24/20 History budesonide [Pulmicort Flexhaler] 1 inh INHALATION Q12H 11/03/19 03/24/20 History calcium carbonate-vitamin D3 1 tablet PO BID 11/03/19 03/24/20 History [Oystercal-D] ciprofloxacin HCl 500 mg PO Q12H #20 tablet 11/03/19 03/24/20 Rx dabigatran etexilate [Pradaxa] 150 mg PO BID 11/03/19 03/24/20 History dextran 70-hypromellose 2 drp OPHTHALMIC (EYE) BID 11/03/19 03/24/20 History diltiazem HCl 30 mg PO TID 11/03/19 03/24/20 History docusate sodium 50 mg PO BID 11/03/19 03/24/20 History ezetimibe 10 mg PO DAILY 11/03/19 03/24/20 History finasteride 5 mg PO DAILY 11/03/19 03/24/20 History flud
[2020-03-31] MEDS: DOCUSATE SODIUM 100 MG CAPSULE PO (16:40)
[2020-03-31] MEDS: SPIRONOLACTONE 25 MG TABLET PO (16:40)
[2020-03-31 18:27] LABS: Glucose Point of Care 289 (65-105)
[2020-03-31] MEDS: ATORVASTATIN 10 MG TABLET PO (20:33)
[2020-03-31 21:01] LABS: Glucose Point of Care 318 (65-105)
[2020-03-31] MEDS: INSULIN GLARGINE (*BKC) 100 UNITS/ML 10 UNITS SUB-Q (21:02)
[2020-04-01] VITALS (17 sets, daily range): BP systolic 118–139; BP diastolic 45–60; PULSE 63–100; RESP 19–28; TEMP 36–37.2; O2SAT 89–99
--- NOTE | 2020-04-01 06:08 | PCRCNOTE ---
Window of time for administration has passed. See next scheduled administration.
[2020-04-01] MEDS: LEVOTHYROXINE SODIUM 125 MCG TABLET PO (06:16)
[2020-04-01] MEDS: CHOLECALCIFEROL 1,000 UNITS TABLET 5000 UNITS PO (08:40)
[2020-04-01] MEDS: BUDESONIDE RESPULE NEB 0.5 MG/2 ML AMP INHALATION (08:40)
[2020-04-01] MEDS: ALBUTEROL SULFATE NEB 2.5 MG/0.5 ML INH 5 MG INHALATION ×2 (08:40→14:25)
[2020-04-01] MEDS: GABAPENTIN 100 MG CAPSULE PO (08:40)
[2020-04-01] MEDS: dilTIAZem HCL 30 MG TABLET PO ×2 (08:40→14:28)
[2020-04-01] MEDS: SPIRONOLACTONE 25 MG TABLET PO (08:41)
[2020-04-01] MEDS: DABIGATRAN ETEXILATE 150 MG CAPSULE PO (08:41)
[2020-04-01] MEDS: FUROSEMIDE INJ 40 MG/4 ML VIAL IV PUSH (08:42)
[2020-04-01] MEDS: PANTOPRAZOLE SODIUM IV 40 MG VIAL IV PUSH (08:42)
[2020-04-01] MEDS: DOCUSATE SODIUM 100 MG CAPSULE PO (08:42)
[2020-04-01] MEDS: FINASTERIDE 5 MG TABLET PO (08:43)
[2020-04-01] MEDS: ASPIRIN 81 MG ENTERIC TABLET PO (08:43)
[2020-04-01] MEDS: DEXAMETHASONE SOD PHOS INJ 4 MG/ML VIAL 6 MG IV PUSH (08:43)
[2020-04-01] MEDS: polyethylene glycoL 3350 17 GM POWD.PACK PO (08:49)
[2020-04-01 09:30] LABS: Glucose Point of Care 194 (65-105)
[2020-04-01 10:59] LABS: Basophils Percent Auto 0.2 % (0.2-1.2); Eosinophils Percent Auto 0.1 % (0-4.4); Hematocrit 30.8 % (42.0-52.0); Hemoglobin 10.3 g/dL (14.0-18.0); Immature Granulocyte Absolute 0.22 K/mm3 (0.00-0.031); Immature Granulocyte Percent A 1.4 % (0-0.5); Lymphocytes Absolute Auto 0.45 K/mm3 (0.9-3.2); Lymphocytes Percent Auto 2.9 % (18.3-44.2); Mean Corpuscular HGB Conc 33.4 g/dl (32-36); Mean Corpuscular Hemoglobin 31.8 pg (26-34); Mean Corpuscular Volume 95.1 fl (80-100); Mean Platelet Volume 9.7 fl (7.4-10.4); Monocytes Absolute Auto 1.1 K/mm3 (0.1-0.6); Monocytes Percent Auto 7.4 % (2.6-8.5); Neutrophils Absolute Auto 13.5 K/mm3 (1.3-6.7); Platelet Count Result 180 k/mm3 (150-375); Red Blood Count 3.24 M/mm3 (4.6-6.20); Red Cell Distribution Width 12.9 % (11.5-14.5); White Blood Count 15.4 K/mm3 (4.5-10.0)
--- NOTE | 2020-04-01 11:10 | PM.PNPUL ---
Progress Note: A&P Assessment and Plan (1) COPD (chronic obstructive pulmonary disease): Code(s): J44.9 - Chronic obstructive pulmonary disease, unspecified Status: Acute Assessment and Plan: - continue albuterol and pulmicort nebs - atrovent nebs 0.5 mg Q6h will be added to regimen (2) Acute respiratory failure due to COVID-19: Code(s): U07.1 - COVID-19; J96.00 - Acute respiratory failure, unspecified whether with hypoxia or hypercapnia Status: Acute Assessment and Plan: - d/c non breather as he seems to be doing fine with high flow oxygen alone - wean FiO2 on high flow alone for sat target of 92-96% - continue dexamethasone 6 mg daily for 5-10 days. - encourage mobilization into chair (3) Urinary tract infection due to ESBL Klebsiella: Code(s): N39.0 - Urinary tract infection, site not specified; B96.89 - Other specified bacterial agents as the cause of diseases classified elsewhere Status: Acute Subjective Date/time seen: 04/01/20 11:10 Interval history: Appears to be doing better today. Less shortness of breath. He's on high flow. Non rebreather was on his chin and hence non functional with sats of 97% this morning. Review of Systems Review of Systems: All systems reviewed & are unremarkable except as noted in HPI and below Exam Const: General: cooperative, alert, awake and acute distress Nutritional Appearance: average body habitus Orientation/consciousness: oriented to person, oriented to place, oriented to time and patient oriented x3 HENMT: Head: normal to inspection, normocephalic and atraumatic Eyes: General: appearance normal, both eyes and all related structures Resp: Effort & Inspection: tachypneic Auscultation: crackles and diminished lung sounds Cardio: Jugular venous distension: no JVD Rate: regular rate Rhythm: regular rhythm Heart sounds: S1 normal heart sound present and S2 normal heart sound present GI: Inspection: normal to inspection Auscultation: normal bowel sounds Skin: General skin exam: normal color and no rashes or lesions noted Neuro: General: oriented to person, oriented to place and oriented to time Objective Data Vital Signs Vital Signs: Vital Signs - 24 hr 03/31/20 12:00 03/31/20 14:00 03/31/20 14:44 Temperature 36.6 C Pulse Rate 95 94 98 Respiratory Rate 22 H 20 Blood Pressure 139/60 Pulse Oximetry 98 03/31/20 14:56 03/31/20 16:00 03/31/20 18:00 Temperature 37.4 C Pulse Rate 83 78 79 Respiratory Rate 20 24 H Blood Pressure 125/54 L Pulse Oximetry 100 03/31/20 20:00 03/31/20 22:00 03/31/20 22:32 Temperature 36.0 C L Pulse Rate 79 73 73 Respiratory Rate 20 20 Blood Pressure 113/49 L Pulse Oximetry 98 03/31/20 22:51 04/01/20 00:00 04/01/20 00:25 Temperature 36.0 C L Pulse Rate 79 77 70 Respiratory Rate 20 22 H Blood Pressure 123/50 L Pulse Oximetry 98 98 04/01/20 02:00 04/01/20 04:00 04/01/20 06:00 Temperature 36.1 C L Pulse Rate 63 72 71 Respiratory Rate 20 Blood Pressure 122/45 L Pulse Oximetry 99 04/01/20 08:00 04/01/20 08:40 04/01/20 08:55 Temperature 36.5 C Pulse Rate 75 73 77 Respiratory Rate 24 H 24 H 24 H Blood Pressure 127/51 L Pulse Oximetry 96 91 Intake/Output Intake/Output: Intake & Output 03/29/20 03/30/20 03/31/20 04/01/20 23:59 23:59 23:59 23:59 Intake Total 940 300 500 700 Output Total 1220 1550 1400 350 Balance -280 -1250 -900 350 Meds/Results Medications: Active Medications Generic Name Dose Route Start Last Admin Trade Name Freq PRN Reason Stop Dose Admin Acetaminophen 1 - 2 mg 03/24/20 14:59 03/28/20 15:57 Acetaminophen 500 Mg Tablet PO 2 mg Q6H PRN Administration Pain Albuterol 5 mg 03/30/20 02:00 04/01/20 08:40 Albuterol Sulfate Neb 2.5 Mg/0.5 Ml Inh INHALATION 5 mg Q6HRT TARAH Administration Artificial Tears 2 drop 03/24/20 17:00 04/01/20 08:40 Artificial Tears Op So
[2020-04-01 11:15] LABS: Alanine Aminotransferase 15 U/L (4-50); Albumin Level 2.7 g/dL (3.5-5.1); Alkaline Phosphatase 123 U/L (38-126); Anion Gap 1 mmol/L (8-16); Aspartate Amino Transferase 23 U/L (17-59); Bilirubin,Total 1.2 mg/dL (0.2-1.3); Blood Urea Nitrogen 30 mg/dL (9-20); Calcium 8.2 mg/dL (8.4-10.2); Carbon Dioxide 39 mmol/L (22-30); Chloride 90 mmol/L (98-107); Estimated CRCL calculation 100 ml/min; Estimated Glomerular Filt Rate > 60; Glucose 202 mg/dL (75-110); Lactate Dehydrogenase 844 U/L (313-618); Phosphorus 3.4 mg/dL (2.5-4.5); Potassium 4.1 mmol/L (3.4-5.0); Sodium 130 mmol/L (137-145)
[2020-04-01 11:44] LABS: CRP 30.8 mg/dL (<1.0)
--- NOTE | 2020-04-01 12:17 | PCSTNOTE ---
The patient treatment was not able to be completed on 04/01 due to patient not understanding what was expected of him. He was awake and when therapist stated I was there to do swallowing therapy, patient stated he did not want to and to take it away (his tray). Therapist then explained two different exercises and modeled each exercise and patient just stated alright or okay but made no attempt to complete the modeled exercises. Will plan to attempt therapy again tomorrow and continue treatment per plan of care.
[2020-04-01] MEDS: IPRATROPIUM BR 0.02% INH SOLN 0.5 MG/2.5 ML VIAL INHALATION (14:25)
[2020-04-01] MEDS: INSULIN ASPART (*BKC) 100 UNITS/ML SUB-Q ×2 (14:47→18:38)
[2020-04-01 15:22] LABS: Glucose Point of Care 325 (65-105)
--- NOTE | 2020-04-01 16:22 | PM.IMPN ---
Progress Note: A&P Assessment and Plan (1) Acute respiratory failure due to COVID-19: Code(s): U07.1 - COVID-19; J96.00 - Acute respiratory failure, unspecified whether with hypoxia or hypercapnia Status: Acute Assessment and Plan: Suspect x-ray findings and respiratory failure secondary to his COVID pneumonia. Diagnosis on the 03/11 and became more hypoxic 6-7 days later as often happens. Started on Decadron on the and finished 10 day course on 03/26. Too late in the course to consider remdesivir. He may be aspirating as well; ST did bedside swallow eval and patient will need pureed with thickened liquids. Watch for dehydration if unable to tolerate oral intake. Inflammatory markers were up and down. Resumed Decadron 03/31. CRP and LDH better today and decrease in O2 requirement. CXR reviewed showing no change. Continue Primaxin. Prognosis is guarded and pt is a DNR. Appreciate Pulmonary input. (2) Pneumonia: Code(s): J18.9 - Pneumonia, unspecified organism Status: Acute Assessment and Plan: Probable viral/COVID. Was empirically started on levofloxacin 03/23 through 03/28 but then changed to Ertapenum due to UTI. Suspicion for bacterial pneumonia is low but consider aspiration. Abx changed to Primaxin given the possibility for aspiration. WBC better again today. Wean O2 as tolerated (3) Congestive heart failure: Code(s): I50.9 - Heart failure, unspecified Status: Acute Assessment and Plan: Chest x-ray could be related to heart failure also and BNP is elevated to 3850. Echo EF of 45-50%. Treating with IV Lasix with negative fluid balance past few days. Watch for over diuresis. Has been on diltiazem to control ventricular rate and will continue since EF not too low. (4) Atrial fibrillation: Code(s): I48.91 - Unspecified atrial fibrillation Status: Acute Assessment and Plan: Chronic controlled ventricular response. Continue Pradaxa and diltiazem at present time (5) COPD (chronic obstructive pulmonary disease): Code(s): J44.9 - Chronic obstructive pulmonary disease, unspecified Status: Acute Assessment and Plan: Finished course of Decadron for COVID 03/26 but resumed 03/31. Changed to Pulmicort respules since probably not able to get much of the inhalers. Continue albuterol and Atrovent nebs. (6) Diabetes type 2, controlled: Code(s): E11.9 - Type 2 diabetes mellitus without complications Status: Acute Assessment and Plan: A1c 6.2 Glucose reviewed on 04/01 Glucose poorly controlled. Continue low-dose sliding scale. Lantus resumed last night so will continue to monitor for now (7) Hypertension: Code(s): I10 - Essential (primary) hypertension Status: Acute Assessment and Plan: Patient's blood pressure was reviewed on 04/01 Blood pressure remains well controlled. Will continue current medications with diltiazem. Continue to monitor (8) Hypothyroidism: Code(s): E03.9 - Hypothyroidism, unspecified Status: Acute Assessment and Plan: TSH normal. Continue thyroid replacement. (9) Obstructive sleep apnea: Code(s): G47.33 - Obstructive sleep apnea (adult) (pediatric) Status: Acute Assessment and Plan: Continue high flow 02 only. Desaturation with CPAP. (10) DVT prophylaxis: Code(s): Z29.9 - Encounter for prophylactic measures, unspecified Status: Acute Assessment and Plan: Pradaxa (11) Urinary tract infection due to ESBL Klebsiella: Code(s): N39.0 - Urinary tract infection, site not specified; B96.89 - Other specified bacterial agents as the cause of diseases classified elsewhere Status: Acute Assessment and Plan: UCx growing ESBL Klebsiella. Started Ertapenem but changed to Primaxin given concern for aspiration Day 4 of abx. No evidence of PCN reaction. Subjecti
[2020-04-01 19:59] LABS: Glucose Point of Care 328 (65-105)
--- NOTE | 2020-04-01 20:29 | PC.NURSE ---
While rounding, found patient without oxygen and 02 sat was 69%. Patient's vitals were obtained and oxygen was reapplied. Patient was minimally responsive to painful stimuli. MD notified of situation and vitals. Oxygenation continued to improve with oxygen. Patient's orientation continued to improve with increasing oxygenation. Patient was made NPO until mentation is back to baseline. Will continue to monitor.
[2020-04-01 20:41] LABS: Glucose Point of Care 338 (65-105)
[2020-04-01] MEDS: INSULIN GLARGINE (*BKC) 100 UNITS/ML 10 UNITS SUB-Q (23:55)
[2020-04-02] VITALS (24 sets, daily range): BP systolic 111–137; BP diastolic 55–78; PULSE 71–102; RESP 18–94; TEMP 35.9–37.2; O2SAT 83–100
[2020-04-02 00:46] LABS: Glucose Point of Care 241 (65-105)
--- NOTE | 2020-04-02 01:10 | PCRCNOTE ---
Window of time for administration has passed. See next scheduled administration.
[2020-04-02] MEDS: ALBUTEROL SULFATE NEB 2.5 MG/0.5 ML INH 5 MG INHALATION ×4 (03:16→22:17)
[2020-04-02] MEDS: IPRATROPIUM BR 0.02% INH SOLN 0.5 MG/2.5 ML VIAL INHALATION ×4 (03:18→22:17)
[2020-04-02] MEDS: PANTOPRAZOLE SODIUM IV 40 MG VIAL IV PUSH (08:06)
[2020-04-02] MEDS: TRIAMCINOLONE ACET 0.1% OINT 15 GM TUBE 1 APPLIC TOPICAL (08:06)
[2020-04-02] MEDS: DEXAMETHASONE SOD PHOS INJ 4 MG/ML VIAL 6 MG IV PUSH (08:07)
[2020-04-02] MEDS: FUROSEMIDE INJ 40 MG/4 ML VIAL IV PUSH (08:07)
[2020-04-02 08:51] LABS: Anion Gap 2.99999 mmol/L (8-16); Blood Urea Nitrogen 29 mg/dL (9-20); Calcium 8.3 mg/dL (8.4-10.2); Carbon Dioxide > 40 mmol/L (22-30); Chloride 91 mmol/L (98-107); Estimated CRCL calculation 87 ml/min; Estimated Glomerular Filt Rate > 60; Glucose 162 mg/dL (75-110); Potassium 4.3 mmol/L (3.4-5.0); Sodium 134 mmol/L (137-145)
[2020-04-02 09:36] LABS: Glucose Point of Care 158 (65-105)
[2020-04-02] MEDS: BUDESONIDE RESPULE NEB 0.5 MG/2 ML AMP INHALATION ×2 (10:20→22:17)
[2020-04-02 13:14] LABS: Glucose Point of Care 174 (65-105)
--- NOTE | 2020-04-02 13:30 | PM.PNPUL ---
Progress Note: A&P Assessment and Plan (1) COPD (chronic obstructive pulmonary disease): Code(s): J44.9 - Chronic obstructive pulmonary disease, unspecified Status: Acute Assessment and Plan: - continue albuterol and pulmicort nebs - atrovent nebs 0.5 mg Q6h will be added to regimen (2) Acute respiratory failure due to COVID-19: Code(s): U07.1 - COVID-19; J96.00 - Acute respiratory failure, unspecified whether with hypoxia or hypercapnia Status: Acute Assessment and Plan: - d/c non breather as he seems to be doing fine with high flow oxygen alone - wean FiO2 on high flow alone for sat target of 92-96% - continue dexamethasone 6 mg daily for 5-10 days. - encourage mobilization into chair (3) Urinary tract infection due to ESBL Klebsiella: Code(s): N39.0 - Urinary tract infection, site not specified; B96.89 - Other specified bacterial agents as the cause of diseases classified elsewhere Status: Acute Subjective Date/time seen: 04/02/20 13:30 Interval history: Hard of hearing, difficult to have a conversation but appears to be improving slightly. Review of Systems Review of Systems: All systems reviewed & are unremarkable except as noted in HPI and below Exam Const: General: cooperative, alert, awake and acute distress Nutritional Appearance: average body habitus Orientation/consciousness: oriented to person, oriented to place, oriented to time and patient oriented x3 HENMT: Head: normal to inspection, normocephalic and atraumatic Eyes: General: appearance normal, both eyes and all related structures Resp: Effort & Inspection: tachypneic Auscultation: crackles and diminished lung sounds Cardio: Jugular venous distension: no JVD Rate: regular rate Rhythm: regular rhythm Heart sounds: S1 normal heart sound present and S2 normal heart sound present GI: Inspection: normal to inspection Auscultation: normal bowel sounds Skin: General skin exam: normal color and no rashes or lesions noted Neuro: General: oriented to person, oriented to place and oriented to time Objective Data Vital Signs Vital Signs: Vital Signs - 24 hr 04/01/20 14:00 04/01/20 14:25 04/01/20 15:04 Temperature Pulse Rate 73 82 83 Respiratory Rate 20 20 Blood Pressure Pulse Oximetry 93 04/01/20 16:00 04/01/20 18:00 04/01/20 20:00 Temperature 37.2 C 36.4 C L Pulse Rate 100 71 83 Respiratory Rate 28 H 22 H Blood Pressure 139/60 118/56 L Pulse Oximetry 93 95 04/01/20 22:00 04/02/20 00:00 04/02/20 01:40 Temperature 36.0 C L Pulse Rate 73 74 79 Respiratory Rate 24 H 24 H Blood Pressure 111/55 L Pulse Oximetry 100 93 04/02/20 02:00 04/02/20 03:19 04/02/20 03:30 Temperature Pulse Rate 74 79 80 Respiratory Rate 20 20 Blood Pressure Pulse Oximetry 04/02/20 04:00 04/02/20 06:00 04/02/20 07:23 Temperature 36.4 C 36.6 C Pulse Rate 79 72 73 Respiratory Rate 24 H 20 Blood Pressure 129/61 120/62 Pulse Oximetry 93 97 04/02/20 08:00 04/02/20 10:00 04/02/20 10:20 Temperature Pulse Rate 76 78 77 Respiratory Rate 20 Blood Pressure Pulse Oximetry 04/02/20 10:40 04/02/20 11:47 04/02/20 12:00 Temperature 36.2 C L Pulse Rate 87 86 89 Respiratory Rate 22 H 24 H Blood Pressure 119/73 Pulse Oximetry 83 L Intake/Output Intake/Output: Intake & Output 03/30/20 03/31/20 04/01/20 04/02/20 23:59 23:59 23:59 23:59 Intake Total 192 275 6111 200 Output Total 1550 1400 1025 750 Balance -1250 -900 605 -550 Meds/Results Medications: Active Medications Generic Name Dose Route Start Last Admin Trade Name Freq PRN Reason Stop Dose Admin Acetaminophen 1 - 2 mg 03/24/20 14:59 03/28/20 15:57 Acetaminophen 500 Mg Tablet PO 2 mg Q6H PRN Administration Pain Albuterol 5 mg 03/30/20 02:00 04/02/20 10:20 Albuterol Sulfate Neb 2.5 Mg/0.5 Ml Inh INHALATION 5 mg Q6HRT TARAH Administration Artificial
--- NOTE | 2020-04-02 17:59 | PM.IMPN ---
Progress Note: A&P Assessment and Plan (1) Acute respiratory failure due to COVID-19: Code(s): U07.1 - COVID-19; J96.00 - Acute respiratory failure, unspecified whether with hypoxia or hypercapnia Status: Acute Assessment and Plan: Suspect x-ray findings and respiratory failure secondary to his COVID pneumonia. Diagnosis on the 03/11 and became more hypoxic 6-7 days later as often happens. Started on Decadron on the and finished 10 day course on 03/26. Too late in the course to consider remdesivir. He may be aspirating as well; ST did bedside swallow eval and patient will need pureed with thickened liquids. Watch for dehydration if unable to tolerate oral intake. Inflammatory markers were up and down. 2nd round of Decadron started 03/31. CRP and LDH better yesterday. Able to come off the NRB mask. CXR yesterday showing no change. Continue Primaxin. Prognosis is guarded and pt is a DNR. Appreciate Pulmonary input. Resume diet (2) Pneumonia: Code(s): J18.9 - Pneumonia, unspecified organism Status: Acute Assessment and Plan: Probable viral/COVID. Was empirically started on levofloxacin 03/23 through 03/28 but then changed to Ertapenum due to UTI. Suspicion for bacterial pneumonia is low but consider aspiration. Abx changed to Primaxin given the possibility for aspiration. WBC better again today. Wean O2 as tolerated. (3) Congestive heart failure: Code(s): I50.9 - Heart failure, unspecified Status: Acute Assessment and Plan: Chest x-ray could be related to heart failure also and BNP is elevated to 3850. Echo EF of 45-50%. Treating with IV Lasix with cumulative negative fluid balance. Watch for over diuresis. Has been on diltiazem to control ventricular rate and will continue since EF not too low. (4) Atrial fibrillation: Code(s): I48.91 - Unspecified atrial fibrillation Status: Acute Assessment and Plan: Chronic controlled ventricular response. Continue Pradaxa and diltiazem at present time (5) COPD (chronic obstructive pulmonary disease): Code(s): J44.9 - Chronic obstructive pulmonary disease, unspecified Status: Acute Assessment and Plan: Finished course of Decadron for COVID 03/26 but resumed 03/31. Changed to Pulmicort respules since probably not able to get much of the inhalers. Continue albuterol and Atrovent nebs. (6) Diabetes type 2, controlled: Code(s): E11.9 - Type 2 diabetes mellitus without complications Status: Acute Assessment and Plan: A1c 6.2 Glucose reviewed on 04/02 Glucose better controlled today. Continue low-dose sliding scale. Continue Lantus and sliding scale. (7) Hypertension: Code(s): I10 - Essential (primary) hypertension Status: Acute Assessment and Plan: Patient's blood pressure was reviewed on 04/02 Blood pressure remains well controlled. Will continue current medications with diltiazem. Continue to monitor (8) Hypothyroidism: Code(s): E03.9 - Hypothyroidism, unspecified Status: Acute Assessment and Plan: TSH normal. Continue thyroid replacement. (9) Obstructive sleep apnea: Code(s): G47.33 - Obstructive sleep apnea (adult) (pediatric) Status: Acute Assessment and Plan: Continue high flow 02 only. Desaturation with CPAP. (10) DVT prophylaxis: Code(s): Z29.9 - Encounter for prophylactic measures, unspecified Status: Acute Assessment and Plan: Pradaxa (11) Urinary tract infection due to ESBL Klebsiella: Code(s): N39.0 - Urinary tract infection, site not specified; B96.89 - Other specified bacterial agents as the cause of diseases classified elsewhere Status: Acute Assessment and Plan: UCx growing ESBL Klebsiella. Started Ertapenem but changed to Primaxin given concern for aspiration Day 5 of abx. No evidence of PCN reaction.
[2020-04-02 18:44] LABS: Glucose Point of Care 224 (65-105)
[2020-04-02] MEDS: INSULIN ASPART (*BKC) 100 UNITS/ML SUB-Q (18:45)
[2020-04-02 21:20] LABS: Glucose Point of Care 201 (65-105)
[2020-04-02] MEDS: DABIGATRAN ETEXILATE 150 MG CAPSULE PO (22:22)
[2020-04-02] MEDS: INSULIN GLARGINE (*BKC) 100 UNITS/ML 10 UNITS SUB-Q (22:22)
[2020-04-02] MEDS: ATORVASTATIN 10 MG TABLET PO (22:22)
[2020-04-03] VITALS (12 sets, daily range): BP systolic 120–136; BP diastolic 60–67; PULSE 66–147; RESP 20–24; TEMP 36.1–36.2; O2SAT 89–94
[2020-04-03 05:12] LABS: Hematocrit 30.4 % (42.0-52.0); Hemoglobin 10.4 g/dL (14.0-18.0); Mean Corpuscular HGB Conc 34.2 g/dl (32-36); Mean Corpuscular Hemoglobin 31.9 pg (26-34); Mean Corpuscular Volume 93.3 fl (80-100); Mean Platelet Volume 9.7 fl (7.4-10.4); Platelet Count Result 196 k/mm3 (150-375); Red Blood Count 3.26 M/mm3 (4.6-6.20); Red Cell Distribution Width 12.4 % (11.5-14.5); White Blood Count 13.8 K/mm3 (4.5-10.0)
[2020-04-03 05:55] LABS: Albumin Level 2.6 g/dL (3.5-5.1); Anion Gap 2.99999 mmol/L (8-16); Blood Urea Nitrogen 27 mg/dL (9-20); CRP 7.6 mg/dL (<1.0); Calcium 8.4 mg/dL (8.4-10.2); Carbon Dioxide > 40 mmol/L (22-30); Chloride 90 mmol/L (98-107); Estimated CRCL calculation 100 ml/min; Estimated Glomerular Filt Rate > 60; Glucose 147 mg/dL (75-110); Lactate Dehydrogenase 761 U/L (313-618); Phosphorus 2.9 mg/dL (2.5-4.5); Potassium 3.9 mmol/L (3.4-5.0); Sodium 133 mmol/L (137-145)
--- NOTE | 2020-04-03 06:43 | PCRCNOTE ---
Window of time for administration has passed. See next scheduled administration.
[2020-04-03] MEDS: LEVOTHYROXINE SODIUM 125 MCG TABLET PO (06:44)
[2020-04-03] MEDS: BUDESONIDE RESPULE NEB 0.5 MG/2 ML AMP INHALATION (08:03)
[2020-04-03] MEDS: ALBUTEROL SULFATE NEB 2.5 MG/0.5 ML INH 5 MG INHALATION (08:03)
[2020-04-03] MEDS: IPRATROPIUM BR 0.02% INH SOLN 0.5 MG/2.5 ML VIAL INHALATION (08:03)
[2020-04-03] MEDS: CHOLECALCIFEROL 1,000 UNITS TABLET 5000 UNITS PO (08:18)
[2020-04-03] MEDS: DEXAMETHASONE SOD PHOS INJ 4 MG/ML VIAL 6 MG IV PUSH (08:18)
[2020-04-03] MEDS: PANTOPRAZOLE SODIUM IV 40 MG VIAL IV PUSH (08:18)
[2020-04-03] MEDS: FUROSEMIDE INJ 40 MG/4 ML VIAL IV PUSH (08:18)
[2020-04-03] MEDS: dilTIAZem HCL 30 MG TABLET PO (08:19)
[2020-04-03] MEDS: SPIRONOLACTONE 25 MG TABLET PO (08:19)
[2020-04-03] MEDS: GABAPENTIN 100 MG CAPSULE PO (08:19)
[2020-04-03] MEDS: DOCUSATE SODIUM 100 MG CAPSULE PO (08:19)
[2020-04-03] MEDS: FINASTERIDE 5 MG TABLET PO (08:19)
[2020-04-03] MEDS: DABIGATRAN ETEXILATE 150 MG CAPSULE PO (08:19)
[2020-04-03] MEDS: TRIAMCINOLONE ACET 0.1% OINT 15 GM TUBE 1 APPLIC TOPICAL (08:20)
[2020-04-03] MEDS: ASPIRIN 81 MG ENTERIC TABLET PO (08:20)
--- NOTE | 2020-04-03 10:38 | PM.IMPN ---
Progress Note: A&P Assessment and Plan (1) Acute respiratory failure due to COVID-19: Code(s): U07.1 - COVID-19; J96.00 - Acute respiratory failure, unspecified whether with hypoxia or hypercapnia Status: Acute Assessment and Plan: Suspect x-ray findings and respiratory failure secondary to his COVID pneumonia. Diagnosis on the 03/11 and became more hypoxic 6-7 days later as often happens. Started on Decadron on the and finished 10 day course on 03/26. Too late in the course to consider remdesivir. He may be aspirating as well; ST did bedside swallow eval and patient will need pureed with thickened liquids. Watch for dehydration if unable to tolerate oral intake. Inflammatory markers were up and down. 2nd round of Decadron started 03/31. Inflammatory better today but CXR reviewed today and showing severe diffuse airspace disease without change. Continue Primaxin and add Vanco. Prognosis is guarded and pt is a DNR; he is also refusing treatment. He is obtunded now due to hypoxia. Spoke with son Justin (JAK) and hospital course and current condition discussed in detail. Explained that patietn is not improving significantly and it is complicated by his refusal to keep the AirVo/Mask in place. Offered comfort measures/Hospice and all questions answered. He will discuss with his sister before making a decision. O2 better but with staff in the room helping him keep the mask in place. May need BiPAP. (2) Pneumonia: Code(s): J18.9 - Pneumonia, unspecified organism Status: Acute Assessment and Plan: Probable viral/COVID. Was empirically started on levofloxacin 03/23 through 03/28 but then changed to Ertapenum due to UTI. Suspicion for bacterial pneumonia is low but consider aspiration. Abx changed to Primaxin given the possibility for aspiration. WBC continues to trend down. MRSA swab positive so will add Vanco. (3) Congestive heart failure: Code(s): I50.9 - Heart failure, unspecified Status: Acute Assessment and Plan: Chest x-ray could be related to heart failure also and BNP is elevated to 3850. Echo EF of 45-50%. Treating with IV Lasix with negative fluid balance yesterday. Watch for over diuresis. Has been on diltiazem to control ventricular rate and will continue since EF not too low. (4) Atrial fibrillation: Code(s): I48.91 - Unspecified atrial fibrillation Status: Acute Assessment and Plan: Chronic controlled ventricular response. Continue Pradaxa and diltiazem at present time (5) COPD (chronic obstructive pulmonary disease): Code(s): J44.9 - Chronic obstructive pulmonary disease, unspecified Status: Acute Assessment and Plan: Finished course of Decadron for COVID 03/26 but resumed 03/31. Changed to Pulmicort respules since probably not able to get much of the inhalers. Continue albuterol and Atrovent nebs. (6) Diabetes type 2, controlled: Code(s): E11.9 - Type 2 diabetes mellitus without complications Status: Acute Assessment and Plan: A1c 6.2 Glucose reviewed on 04/03 Glucose better controlled this morning. Continue low-dose sliding scale. Continue Lantus (7) Hypertension: Code(s): I10 - Essential (primary) hypertension Status: Acute Assessment and Plan: Patient's blood pressure was reviewed on 04/03 Blood pressure remains well controlled. Will continue current medications with diltiazem. Continue to monitor (8) Hypothyroidism: Code(s): E03.9 - Hypothyroidism, unspecified Status: Acute Assessment and Plan: TSH normal. Continue thyroid replacement. (9) Obstructive sleep apnea: Code(s): G47.33 - Obstructive sleep apnea (adult) (pediatric) Status: Acute Assessment and Plan: Continue high flow 02 only. Desaturation with CPAP. (10) DVT prophylaxis: Code(s): Z29.9 - Encounter for prophylactic measur
[2020-04-03 11:04] LABS: Glucose Point of Care 134 (65-105)
[2020-04-03 11:57] LABS: Glucose Point of Care 245 (65-105)
[2020-04-03] MEDS: INSULIN ASPART (*BKC) 100 UNITS/ML SUB-Q (13:29)
[2020-04-03] MEDS: LORazepam INJ (*CRX) 2 MG/ML VIAL 1 MG IV PUSH ×2 (15:30→16:50)
[2020-04-03] MEDS: MORPHINE SULFATE (*CRX) 2 MG/ML INJ IV PUSH ×2 (15:31→16:51)
[2020-04-03] MEDS: MORPHINE SULFATE INJ (*CRX) 50 MG in SODIUM CHLORIDE 0.9% IV 95 ML IV CONT (15:44)
--- NOTE | 2020-04-03 18:35 | PC.NURSE ---
home [facility] in [place] notified. Security notified.
--- NOTE | 2020-04-03 18:52 | PC.NURSE ---
Patient at 1725 on 04/03/2020. notified. Family was with patient at time of expiration
--- NOTE | 2020-04-04 07:29 | PM.DDS ---
Discharge Sum: Prov Provider Primary care physician: UNKNOWN,DOCTOR Admitting provider: Juan Oconnor MD Consults: 03/30/20 19:03 Consult to Physician Routine Comment: MESSAGE LEFT Consulting Provider: Julia Sampson call or contact centre coach/MD group to consult: pulmonary Reason for consultation: resp failure Has provider been notified: Yes Pronouncing clinician: Marcelo Velazquez Discharge Sum: Diag PCOD Acute respiratory failure related to COVID-19 Contributing Factors (1) Acute respiratory failure due to COVID-19: (2) Pneumonia: (3) Congestive heart failure: (4) Atrial fibrillation: (5) COPD (chronic obstructive pulmonary disease): (6) Diabetes type 2, controlled: (7) Hypertension: (8) Hypothyroidism: (9) Obstructive sleep apnea: (10) Urinary tract infection due to ESBL Klebsiella: Discharge Sum: Summary Date and Time Date of admission: 03/24/20 11:15 Date of : 04/03/20 Time of : 17:25 Summary Details: Patient diagnosed with COVID-19 on the 03/11. He was started on Decadron on 03/17; his condition worsened with hypoxia and he was brought to the ED and admitted 03/24. He completed a 10 day course on 03/26. It was deemed too late in the course to consider remdesivir. He had persistent hypoxia. He may be aspirating as well; ST did bedside swallow eval and patient needed pureed with thickened liquids so diet changed. Given that his condition did not improve and CXR showing no change, we started a 2nd round of Decadron on 03/31. He was also started on broad spectrum abx. Inflammatory markers improved but CXR showing severe diffuse airspace disease without change. Patient began to refuse treatment. He was taking off his O2 and was found to be severely hypoxic at times. Patient told the nurse at one point that he did not want any further treatment. Patient was obtunded when severely hypoxic. He was DNR already. Spoke with son Justin (POA) on 04/03 at length. The hospital course and current condition were discussed with him in detail. Explained that patient is not improving significantly and it is complicated by his refusal to keep the AirVo/Mask in place. Offered comfort measures/Hospice and all questions answered. He discussed this with his sister. Spoke with the sister as well and all questions answered. Justin decided to keep the patient comfortable. He arrived and was provided with appropriate PPE so he could be at bedside. The patient was started on a Morphine drip and Morphine and Ativan were available for comfort. Patient remained comfortable and on 04/03/20. Additional Data Family: at bedside Attending physician: Jose Luis Velazquez MD Was code activated?: No Hospice patient?: No
== END 2020-04-03 17:25 | disposition expired | DRG 177 ==
LOC: ANHED 11:14 → ANH3MEDSUR 12:07 → ANHIMU 03-26 13:52
PROVIDERS: Emergency Medicine Emergency Medical Services; Family Medicine; Admitting Provider Internal Medicine; Emergency Provider Emergency Medicine; Visit Provider Internal Medicine
DX: U07.1 COVID-19 (principal); J96.00 Acute respiratory failure, unspecified whether with hypoxia or hypercapnia; J12.89 Other viral pneumonia; J44.0 Chronic obstructive pulmonary disease with (acute) lower respiratory infection; N39.0 Urinary tract infection, site not specified; Z16.12 Extended spectrum beta lactamase (ESBL) resistance; I27.20 Pulmonary hypertension, unspecified; B96.1 Klebsiella pneumoniae [K. pneumoniae] as the cause of diseases classified elsewhere; I11.0 Hypertensive heart disease with heart failure; I50.9 Heart failure, unspecified; I48.91 Unspecified atrial fibrillation; E11.9 Type 2 diabetes mellitus without complications; E03.9 Hypothyroidism, unspecified; G47.33 Obstructive sleep apnea (adult) (pediatric); K21.9 Gastro-esophageal reflux disease without esophagitis; G25.81 Restless legs syndrome; E78.5 Hyperlipidemia, unspecified; Z66 Do not resuscitate; Z87.891 Personal history of nicotine dependence; Z79.02 Long term (current) use of antithrombotics/antiplatelets; Z79.4 Long term (current) use of insulin; Z79.82 Long term (current) use of aspirin; Z88.0 Allergy status to penicillin; Z88.1 Allergy status to other antibiotic agents; Z95.0 Presence of cardiac pacemaker
CPT/HCPCS: 36415; 36600; 71045; 80048; 80053; 80069; 80076; 81001; 82306; 82550; 82728; 82805; 83036; 83615; 83735; 83880; 84100; 84443; 84484; 85025; 85027; 85380; 85610; 85730; 86140; 87077; 87081; 87086; 87088; 87186; 92610; 93005; 93306; 94640; 94660; 96374; 96375; 99285; A9270; C9113; J0743; J1100; J1335; J1815; J1940; J1956; J2060; J2270; J3370; J3475; J8540